=== PATIENT | female | born 1950 | race Caucasian/White ===

== ENCOUNTER → 2016-11-23 | Outpatient (REF) | payer MEDICARE, MEDICAID | LOC: M SFHCLERA 09:47 | PROVIDERS: ATTEND Physician Assistant | DX: J02.9 Acute pharyngitis, unspecified (principal) ==

== ENCOUNTER → 2017-03-07 | Outpatient (CLI) | payer MEDICARE, MEDICAID ==
[2017-03-07 11:51] LABS: MEAN CORPUSCULAR HEMOGLOBIN 28.8 pg (27.0-33.0); MEAN CORPUSCULAR HGB CONC 31.9 g/dl (32.0-36.5); MEAN CORPUSCULAR VOLUME 90.3 fl (80.0-96.0); RED CELL DISTRIBUTION WIDTH 13.1 % (11.5-14.5); WHITE BLOOD COUNT 6.1 K/mm3 (4.0-10.0)
[2017-03-07 12:13] LABS: ALBUMIN 3.3 GM/DL (3.2-5.2); ALBUMIN/GLOBULIN RATIO 0.97 (1.00-1.93); ALKALINE PHOSPHATASE 92 U/L (45-117); ALT/SGPT 19 U/L (12-78); ANION GAP 4 MEQ/L (8-16); AST/SGOT 17 U/L (15-37); BILIRUBIN,TOTAL 0.9 MG/DL (0.2-1.0); BLOOD UREA NITROGEN 8 MG/DL (7-18); CALCIUM LEVEL 8.7 MG/DL (8.8-10.2); CARBON DIOXIDE LEVEL 31 MEQ/L (21-32); CHLORIDE LEVEL 107 MEQ/L (98-107); CHOLESTEROL LEVEL 158 MG/DL (<200); CREATININE FOR GFR 0.77 MG/DL (0.55-1.02); GLOMERULAR FILTRATION RATE > 60.0 (>45); GLUCOSE, FASTING 89 MG/DL (80-110); POTASSIUM SERUM 4.7 MEQ/L (3.5-5.1); SODIUM LEVEL 142 MEQ/L (136-145); TOTAL PROTEIN 6.7 GM/DL (6.4-8.2); TRIGLYCERIDES LEVEL 56 MG/DL (<150)
== END ==
LOC: M LRY 08:02
PROVIDERS: ATTEND Nurse Practitioner Family
DX: E78.5 Hyperlipidemia, unspecified (principal); E03.9 Hypothyroidism, unspecified; Z13.0 Encounter for screening for diseases of the blood and blood-forming organs and certain disorders involving the immune mechanism

== ENCOUNTER → 2017-03-13 | Outpatient (CLI) | payer MEDICARE, MEDICAID ==
--- NOTE | 2017-03-13 11:00 | REP ---
Clinical: Chest pain. Technique: PA and lateral. Comparison: None. Findings: Mediastinum and cardiac silhouette are within normal limits. Lung nino demonstrate chronic-appearing changes without acute consolidation, effusion, or pneumothorax. Skeletal structures demonstrate age-related osteopenia and degenerative change. Impression: No acute cardiopulmonary process appreciated. If the patient remains symptomatic consider chest CT for further investigation. Signed by Jose Ramon Coffman MD 03/13/2017 10:53 A
--- NOTE | 2017-03-13 14:04 | ECGEPIP ---
Stationary ECG Study [facility] Test Date: 2017-03-13 Pat Name: REY DEAN Department: Room: - Gender: F Emergency Telecommunications Dispatcher: RADHA : 1950 Requested By: Elena BOUDREAUX Order Number: [id number] Reading MD: Ileana Ontiveros Measurements Intervals [place] Rate: 75 P: 71 NM: 155 QRS: 62 QRSD: 92 T: 61 QT: 364 QTc: 406 Interpretive Statements SINUS RHYTHM NSSTTWABN NO PRIOR Electronically Signed On 03-13-2017 14:04:29 EDT by Ileana Ontiveros
== END ==
LOC: M LAB 10:07
PROVIDERS: ATTEND Nurse Practitioner Family
DX: R07.9 Chest pain, unspecified (principal); R06.02 Shortness of breath; R00.2 Palpitations

== ENCOUNTER → 2018-03-07 | Outpatient (REF) | payer MEDICARE, MEDICAID ==
[2018-03-07 12:44] LABS: ALBUMIN 3.7 GM/DL (3.2-5.2); ALBUMIN/GLOBULIN RATIO 0.97 (1.00-1.93); ALKALINE PHOSPHATASE 89 U/L (45-117); ALT/SGPT 18 U/L (12-78); ANION GAP 6 MEQ/L (8-16); AST/SGOT 19 U/L (7-37); BLOOD UREA NITROGEN 11 MG/DL (7-18); CARBON DIOXIDE LEVEL 28 MEQ/L (21-32); CHLORIDE LEVEL 108 MEQ/L (98-107); CHOLESTEROL LEVEL 167 MG/DL (<200); CHOLESTEROL RISK RATIO 2.168 (<5); CREATININE FOR GFR 0.82 MG/DL (0.55-1.30); GLOMERULAR FILTRATION RATE > 60.0 (>45); GLUCOSE, FASTING 97 MG/DL (70-100); HDL CHOLESTEROL 77 MG/DL (>40); LDL CHOLESTEROL 80.6 MG/DL (<100); NON-HDL-C 90 MG/DL; POTASSIUM SERUM 4.4 MEQ/L (3.5-5.1); SODIUM LEVEL 142 MEQ/L (136-145); TOTAL PROTEIN 7.5 GM/DL (6.4-8.2); TRIGLYCERIDES LEVEL 47 MG/DL (<150)
== END ==
LOC: M LAB REF 11:48
DX: E78.5 Hyperlipidemia, unspecified (principal); E03.9 Hypothyroidism, unspecified; I10 Essential (primary) hypertension
CPT/HCPCS: 84443

== ENCOUNTER → 2018-09-21 | Outpatient (CLI) | payer MEDICARE, MEDICAID ==
[2018-09-21 19:33] LABS: ALBUMIN 3.4 GM/DL (3.2-5.2); ALBUMIN/GLOBULIN RATIO 0.94 (1.00-1.93); ALKALINE PHOSPHATASE 88 U/L (45-117); ALT/SGPT 18 U/L (12-78); ANION GAP 5 MEQ/L (8-16); AST/SGOT 17 U/L (7-37); BILIRUBIN,TOTAL 0.7 MG/DL (0.2-1.0); BLOOD UREA NITROGEN 9 MG/DL (7-18); CALCIUM LEVEL 8.8 MG/DL (8.8-10.2); CARBON DIOXIDE LEVEL 30 MEQ/L (21-32); CHLORIDE LEVEL 106 MEQ/L (98-107); CHOLESTEROL LEVEL 237 MG/DL (<200); CHOLESTEROL RISK RATIO 3.703 (<5); CREATININE FOR GFR 0.83 MG/DL (0.55-1.30); GLOMERULAR FILTRATION RATE > 60.0 (>45); GLUCOSE, FASTING 86 MG/DL (70-100); HDL CHOLESTEROL 64 MG/DL (>40); LDL CHOLESTEROL 160 MG/DL (<100); NON-HDL-C 173 MG/DL; POTASSIUM SERUM 4.7 MEQ/L (3.5-5.1); SODIUM LEVEL 141 MEQ/L (136-145); TRIGLYCERIDES LEVEL 67 MG/DL (<150)
== END ==
LOC: M LRY 09:15
DX: I10 Essential (primary) hypertension (principal); E78.5 Hyperlipidemia, unspecified; E03.9 Hypothyroidism, unspecified
CPT/HCPCS: 84443

== ENCOUNTER → 2018-12-17 | Outpatient (CLI) | payer MEDICARE, MEDICAID ==
[2018-12-17 18:21] LABS: BLOOD UREA NITROGEN 9 MG/DL (7-18); CARBON DIOXIDE LEVEL 29 MEQ/L (21-32); CHLORIDE LEVEL 106 MEQ/L (98-107); CREATININE FOR GFR 0.86 MG/DL (0.55-1.30); GLOMERULAR FILTRATION RATE > 60.0 (>45); GLUCOSE, FASTING 103 MG/DL (70-100); POTASSIUM SERUM 4.3 MEQ/L (3.5-5.1); SODIUM LEVEL 141 MEQ/L (136-145)
[2018-12-17 18:45] LABS: BASO # 0.1 10^3/uL (0.0-0.2); BASO % 0.9 % (0.0-1.0); EOS # 0.1 10^3/uL (0.0-0.50); EOS % 1.2 % (0.0-3.0); HEMOGLOBIN 12.7 g/dl (12.0-15.5); LYMPH # 2.6 10^3/uL (1.5-4.5); LYMPH % 33.1 % (24.0-44.0); MEAN CORPUSCULAR HEMOGLOBIN 28.3 pg (27.0-33.0); MEAN CORPUSCULAR HGB CONC 31.8 g/dl (32.0-36.5); MEAN CORPUSCULAR VOLUME 89.3 fl (80.0-96.0); MONO # 0.6 10^3/uL (0.0-0.8); MONO % 8.3 % (0.0-5.0); NEUTROPHILS # 4.3 10^3/uL (1.8-7.7); NEUTROPHILS % 56.2 % (36.0-66.0); PLATELET COUNT, AUTOMATED 326 10^3/uL (150-450); RED BLOOD COUNT 4.48 10^6/uL (4.00-5.40); WHITE BLOOD COUNT 7.7 10^3/uL (4.0-10.0)
== END ==
LOC: M LRY 09:46
PROVIDERS: ATTEND Obstetrics & Gynecology
DX: C52 Malignant neoplasm of vagina (principal); N95.0 Postmenopausal bleeding

== ENCOUNTER → 2019-01-07 | Outpatient (CLI) | payer MEDICARE, MEDICAID ==
[~2019-01-07] MED LIST: ATOR1TAB19 PO; LEVO50TA5 PO; TUMS500C PO
--- NOTE | 2019-01-13 11:19 | RADONC ---
RADIATION ONCOLOGY CONSULTATION NOTE DATE: 01/07/2019 CHART NUMBER: [id number] DIAGNOSIS: Vaginal carcinoma. STAGE: IIB, [id number]. ECOG PERFORMANCE STATUS: 0. CONSULTATION NOTE: Ms. 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 HISTORY OF PRESENT ILLNESS: The patient was in the usual state of health until around August 2018 when she began developing some postmenopausal bleeding. She was thought to have fibroids and underwent an endometrial biopsy which was nondiagnostic. There was noted, however to be a left vaginal wall ulcerative lesion and a biopsy was done on 11/20/2018 which revealed a moderately differentiated invasive squamous cell carcinoma. The patient was seen by the radiation oncologists and FREIGHT ELEVATOR ERECTOR oncologists at [facility] and is now being referred to us for discussion of the brachytherapy portion of her treatment as well as the systemic chemotherapy is now presenting to me for discussion of the external beam portion of her treatments as well. PAST MEDICAL HISTORY: The patient's past medical history is positive for hypertension, hypothyroidism and hyperlipidemia. She also has a history of varicose veins. ALLERGIES: The patient is allergic to CLARITHROMYCIN as well as SULFA DRUGS. SOCIAL HISTORY: The patient had smoked two packs of cigarettes per day for 29 years. She quit 1994. She drinks alcohol socially. FAMILY HISTORY: The patient's family history is positive for a mother with Hodgkin's disease and a half brother with melanoma. She has a half-sister with uterine carcinoma. REVIEW OF SYSTEMS: The patient's review of systems is positive for anorexia and some rectal incontinence. She also has occasional postmenopausal vaginal bleeding as discussed above. PHYSICAL EXAMINATION: The patient is a well-developed, well-nourished, female in no acute distress. HEENT exam is normocephalic, atraumatic. Extraocular movements are intact. There is no palpable cervical, supraclavicular, infraclavicular, axillary, or inguinal lymphadenopathy present. Lungs are clear to auscultation and percussion. Heart has a regular rate and rhythm. Abdomen is benign with no hepatosplenomegaly, masses, or tenderness. Skeletal examination reveals no tenderness to pressure or percussion of the bony skeleton. Extremities reveal no clubbing, cyanosis, or edema. Neurologic exam is grossly intact, as is the remainder of the physical examination. FREIGHT ELEVATOR ERECTOR examination was deferred at this time. The patient reports that she has had multiple FREIGHT ELEVATOR ERECTOR examinations and I will defer to the FREIGHT ELEVATOR ERECTOR examination done at [facility] which is well described. ASSESSMENT: I have had a lengthy discussion with this patient with regards to external beam radiation therapy. I do believe she is a candidate for such treatment and I have so informed her. I have discussed with the patient in detail the potential benefits as well as possible acute and chronic sequelae of external beam radiation therapy. We discussed logistics of treatment planning, simulation and subsequent fractionated daily radiation treatments. At the request of her radiation oncologist in [facility] I am setting her up with our medical oncologist here so that the care could be coordinated locally providing better convenience for the patient. We are planning on treating the patient to her primary site and lymph node drainage sites with concomitant chemotherapy. She will then be referred back to her physicians at [facility] for placement of her brachytherapy. I did explain to the patient that this is a curable disease and overall her best chances for local control would be a combination of external beam radiation therapy as well as brachytherapy as well as brachytherapy. Thank you for allowing us to participate in the care of this very pleasant woman. I look forward to working with you closely in her care. If I could be of any further assistance or provide you with any information, please feel free to contact me anytime. cc: MD Wale Zavala MD Seung Hahn, MD Sara McGee, MD
== END ==
LOC: M ONCR 13:48
PROVIDERS: ATTEND Radiology Radiation Oncology
DX: C52 Malignant neoplasm of vagina (principal)

== ENCOUNTER → 2019-01-15 | Outpatient (CLI) | payer MEDICARE, MEDICAID ==
[~2019-01-15] MED LIST changes: +COLA100C5 PO; +DEXA4TA PO; +LASI20TA3 PO; +LIDOCAINE 2% MDV 20 ML VIAL As Ordered ONE; +MIDAZOLAM INJ 2 MG/2 ML VIAL (J2250) As Ordered ONE; +OLAN10TA2 PO; +ONDA8TAB7 PO; +PROC10TA4 PO; +ZANTTAB PO; +ceFAZolin 1GM INJ (J0690 PER 500MG) As Ordered ONE; +fentaNYL 100 MCG/2 ML INJECTION (J3010) As Ordered ONE
--- NOTE | 2019-01-29 09:42 | REPIR ---
DATE OF PROCEDURE: 01/15/2019 ATTENDING SURGEON: Smiley Dupont MD ASSISTANTS: Gabby Gaviria and Anamika Muñoz PREOPERATIVE DIAGNOSES: Vaginal cancer, tobacco use. POSTOPERATIVE DIAGNOSES: Vaginal cancer, tobacco use. PROCEDURE: Ultrasound-guided right internal jugular vein cannulation, fluoroscopic-guided right internal jugular vein tunneled central venous catheter with subcutaneous port using a PowerPort with 90-[id number]-lyikta catheter. INDICATION: The patient is a 68-year-old female with squamous cell carcinoma of the vagina who requires access for chemotherapy. The patient will undergo placement of a tunneled central venous catheter with subcutaneous port. Risks, benefits, and alternative treatment options were discussed with the patient. ANESTHESIA: Local with 20 mL of 2% lidocaine. FLUORO TIME: 0.2 minutes. CONTRAST: None. PREOPERATIVE ANTIBIOTICS: Ancef 2 grams COMPLICATIONS: None. DRAINS: None. SPECIMENS: None. IMPLANT: Right internal jugular vein tunneled central venous catheter with subcutaneous port using a Bard PowerPort and 33-[id number]-[id number] catheter. DESCRIPTION OF PROCEDURE: The patient was taken to the angiography suite, placed supine on the angiography room table, and then prepped and draped in a standard surgical fashion. The right internal jugular vein was evaluated with ultrasound, noted to be widely patent, easily compressible, and free of thrombus. Ultrasound was used to guide cannulation of the right internal jugular vein with real-time concurrent visualization of the entry of the needle into the right internal jugular vein with a hard copy image preserved. The pocket was created in the right chest, the catheter was tunneled from the pocket to the right internal jugular vein entry site, and advanced through the introducer sheath which was placed under fluoroscopic guidance. The catheter was positioned under fluoroscopic guidance with the tip in the superior vena cava right atrial junction. The catheter was connected to the port, and then the port was placed in the pocket. The catheter and port were accessed and noted to aspirate easily and then flushed with heparinized saline. The incisions were then closed using 0 Monocryl in inverted interrupted fashion. Final fluoroscopic image showed the catheter and port to be in good position and good alignment with no pneumo- or hemothorax noted. Edited 01/29/2019 aml
== END | disposition home or self-care (01) ==
LOC: M IRPRO 07:54
PROVIDERS: ATTEND Internal Medicine Medical Oncology
DX: C52 Malignant neoplasm of vagina (principal); Z72.0 Tobacco use
CPT/HCPCS: 36561; 76937; 77001; C1788; C1894; J0690

== ENCOUNTER → 2019-01-24 | Outpatient (CLI) | payer MEDICARE, MEDICAID ==
[~2019-01-24] MED LIST changes: -COLA100C5 PO; -LIDOCAINE 2% MDV 20 ML VIAL As Ordered ONE; -MIDAZOLAM INJ 2 MG/2 ML VIAL (J2250) As Ordered ONE; -ZANTTAB PO; -ceFAZolin 1GM INJ (J0690 PER 500MG) As Ordered ONE; -fentaNYL 100 MCG/2 ML INJECTION (J3010) As Ordered ONE
--- NOTE | 2019-01-24 12:22 | REP ---
DUPLEX EXTREMITY VENOUS ULTRASOUND: Bilateral lower extremity. HISTORY: Bilateral lower extremity swelling. Rule out DVT. FINDINGS: The deep veins are anechoic and fully compressible from the groin to the popliteal fossa in the left and right lower extremity. Color flow imaging is homogeneous. Spectral Doppler interrogation demonstrates intact respiratory variation in flow and normal manual augmentation of flow. There is no evidence of deep vein thrombosis. There is a 2.4 x 0.4 x 1.7 cm left popliteal fossa fluid collection consistent with a Kathleen's cyst. IMPRESSION: Small left-sided Kathleen's cyst, otherwise negative bilateral lower extremity duplex venous ultrasound. No evidence of deep vein thrombosis. Electronically Signed by Earnest Velasquez MD 01/24/2019 02:37 P
== END ==
LOC: M RAD 11:16
PROVIDERS: ATTEND Nurse Practitioner Family
DX: M71.22 Synovial cyst of popliteal space [Baker], left knee (principal); M79.89 Other specified soft tissue disorders

== ENCOUNTER → 2019-02-25 | Outpatient (RCR) | payer MEDICARE, MEDICAID ==
--- NOTE | 2019-01-28 14:49 | RADONC ---
RADIATION ONCOLOGY PROGRESS NOTE DATE: 01/27/2019 CHART NUMBER: [id number] Ms. Acuña is presently at a dose of 720 cGy to her pelvis and is tolerating treatments quite well at this point with no complaints related to her radiation therapy. She is having no new urinary or bowel difficulties and no bone pain. The patient's review of systems is positive for some urinary discomfort which is unchanged. It is otherwise noncontributory. She denies nausea, vomiting, fevers, chills, night sweats, diplopia, headaches, anxiety or depression, anorexia, weight loss, visual disturbances, chest pain, urinary or bowel difficulties, bone pain, or neurological problems. On physical exam the patient's skin is in good condition with no evidence of moist or dry desquamation. The remainder of her physical exam remains unchanged. Ms. Acuña is tolerating treatments quite well and radiation will continue as scheduled.
--- NOTE | 2019-02-03 09:32 | RADONC ---
RADIATION ONCOLOGY PROGRESS NOTE DATE OF SERVICE: 02/03/2019 CHART #: [id number] Ms. Acuña is presently at a dose of 1440 cGy to her vagina and is tolerating her treatments fairly well with no significant difficulties related to her radiation therapy. She does complain at this time of hemorrhoids and this is being helped somewhat with sitz baths. She does have some loose bowel movements. REVIEW OF SYSTEMS: The patient's review of systems is noncontributory. Denies nausea, vomiting, fevers, chills, night sweats, diplopia, headaches, anxiety or depression, anorexia, weight loss, visual disturbances, chest pain, urinary or bowel difficulties, bone pain, or neurological problems. PHYSICAL EXAMINATION: The patient's skin is in good condition with no evidence of moist or dry desquamation. The remainder of her physical exam remains unchanged. Ms. Acuña is tolerating treatments quite well and radiation will continue as scheduled.
--- NOTE | 2019-02-10 10:02 | RADONC ---
RADIATION ONCOLOGY PROGRESS NOTE DATE: 02/10/2019 CHART NUMBER: [id number] Mrs. Acuña with a diagnosis of vaginal carcinoma is currently undergoing local regional radiotherapy with concomitant cisplatin based chemotherapy. She is currently at a dose of 2340 cGy of an anticipated 4500 cGy. A brachytherapy boost will be scheduled thereafter. Thus far she is tolerating her radiotherapy well with no significant untoward side effects. REVIEW OF SYSTEMS: She specifically denies any nausea, vomiting (with the exception of when she gets her chemotherapy). Her energy level is adequate and generally she is tolerating her multimodality therapy reasonably well. She also denies any anorexia, weight loss, depression, visual disturbances, chest pain or urinary issues. She does complain of some bowel sensitivity with some loosening of the stool and mucus production. She does have Imodium should she undergo diarrhea. EXAMINATION FINDINGS: The skin within the irradiated volume shows no evidence of erythema and certainly no physical desquamation. There is no palpable peripheral lymphadenopathy. The remainder of the physical examination is unchanged. IMPRESSION: Tolerating therapy well. PLAN: Treatments to continue as outlined. MTDD
--- NOTE | 2019-02-19 10:47 | RADONC ---
RADIATION ONCOLOGY PROGRESS NOTE DATE: 02/18/2019 CHART #: [id number] Ms. Acuña is presently at a dose of 3420 cGy to her pelvis and is tolerating treatments quite well at this point with no complaints related to her radiation therapy. She is having no urinary or bowel difficulties and no bone pain. REVIEW OF SYSTEMS: The patient's review of systems is noncontributory. Denies nausea, vomiting, fevers, chills, night sweats, diplopia, headaches, anxiety or depression, anorexia, weight loss, visual disturbances, chest pain, urinary or bowel difficulties, bone pain, or neurological problems. PHYSICAL EXAMINATION: The patient's skin is in good condition with no evidence of moist or dry desquamation. The remainder of her physical exam remains unchanged. Ms. Acuña is tolerating treatments quite well and radiation will continue as scheduled.
[~2019-02-25] MED LIST changes: +COLA100C5 PO; +ZANTTAB PO
--- NOTE | 2019-02-26 07:45 | RADONC ---
RADIATION ONCOLOGY PROGRESS NOTE: DATE: 02/24/2019 CHART NUMBER: [id number] Ms. Acuña is presently at a dose of 4140 cGy to her pelvis and is tolerating treatments quite well at this point with some discomfort upon urination and generally skin is burning. REVIEW OF SYSTEMS: The patient's review of systems is otherwise noncontributory. She denies nausea, vomiting, fevers, chills, night sweats, diplopia, headaches, anxiety or depression, anorexia, weight loss, visual disturbances, chest pain, urinary or bowel difficulties, bone pain, or neurological problems. PHYSICAL EXAMINATION: The patient's skin shows erythema and tanning present but overall is in generally good condition with no evidence of moist or dry desquamation. The remainder of her physical exam is largely unchanged. Ms. Acuña is scheduled for completion in 2 days. She has been in contact with both Dr. Skinner as well as Dr. Farias in [place] and they are ranging the brachytherapy portion of her treatment. In the meantime, radiation will continue as scheduled.
== END ==
LOC: M ONCR 01-27 08:43
PROVIDERS: ATTEND Radiology Radiation Oncology
DX: C52 Malignant neoplasm of vagina (principal)

== ENCOUNTER 2019-02-26 08:42 | Outpatient (RCR) | payer MEDICARE, MEDICAID ==
--- NOTE | 2019-02-27 09:48 | RADONC ---
RADIATION ONCOLOGY TREATMENT SUMMARY: DATE: 02/26/2019 CHART NUMBER: [id number] DIAGNOSIS: Vaginal carcinoma. STAGE: II B, cT2b, N0,M0 ECOG PERFORMANCE STATUS: 0 Ms. 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 We treated the patient to her pelvis for a total dose of 4500 cGy delivered and 25 fractions of 180 cGy each over 35 elapsed days from 01/22/2019 through 02/26/2019. The patient's pelvis was treated on a linear accelerator utilizing a 15 MV photon beam via 3D conformal technique with anterior posterior left and right lateral nino. Ms. Acuña tolerated her treatments quite well and was able to complete therapy as prescribed without interruption. The patient is scheduled to be seen next week by Dr. Farias at [facility]. She is also scheduled for an MRI for treatment planning purposes for the brachytherapy portion of her treatment. I have scheduled the patient see me again in 1 month for further followup and evaluation as well. Thank you once again for allowing us to participate in the care of this very pleasant woman. If I could be of any further assistance, please feel free to contact me anytime. As always warm regards, cc: MD Wale Zavala MD Seung Hahn, MD Sara McGee, MD
[2019-03-17] MEDS ORDERED: OLAN10TA2 PO (09:06)
== END 2019-03-28 ==
LOC: M ONCR 08:42
PROVIDERS: ATTEND Radiology Radiation Oncology
DX: C52 Malignant neoplasm of vagina (principal)

== ENCOUNTER → 2019-03-13 | Outpatient (CLI) | payer MEDICARE, MEDICAID ==
[2019-03-13 17:02] LABS: BASO % 0.7 % (0.0-1.0); EOS % 1.1 % (0.0-3.0); HEMATOCRIT 26.2 % (36.0-47.0); HEMOGLOBIN 8.6 g/dl (12.0-15.5); LYMPH # 0.6 10^3/uL (1.5-4.5); LYMPH % 21.3 % (24.0-44.0); MEAN CORPUSCULAR HEMOGLOBIN 29.1 pg (27.0-33.0); MEAN CORPUSCULAR HGB CONC 32.8 g/dl (32.0-36.5); MEAN CORPUSCULAR VOLUME 88.5 fl (80.0-96.0); MONO # 0.5 10^3/uL (0.0-0.8); MONO % 16.3 % (0.0-5.0); NEUTROPHILS # 1.7 10^3/uL (1.8-7.7); NEUTROPHILS % 59.9 % (36.0-66.0); PLATELET COUNT, AUTOMATED 282 10^3/uL (150-450); RED BLOOD COUNT 2.96 10^6/uL (4.00-5.40); WHITE BLOOD COUNT 2.8 10^3/uL (4.0-10.0)
[2019-03-13 17:14] LABS: ALBUMIN 3.2 GM/DL (3.2-5.2); ALT/SGPT 14 U/L (12-78); BILIRUBIN,TOTAL 0.3 MG/DL (0.2-1.0); BLOOD UREA NITROGEN 11 MG/DL (7-18); CALCIUM LEVEL 8.6 MG/DL (8.8-10.2); CARBON DIOXIDE LEVEL 27 MEQ/L (21-32); CHLORIDE LEVEL 107 MEQ/L (98-107); CHOLESTEROL LEVEL 178 MG/DL (<200); CHOLESTEROL RISK RATIO 2.825 (<5); CREATININE FOR GFR 0.81 MG/DL (0.55-1.30); GLOMERULAR FILTRATION RATE > 60.0 (>45); GLUCOSE, FASTING 97 MG/DL (70-100); HDL CHOLESTEROL 63 MG/DL (>40); LDL CHOLESTEROL 101 MG/DL (<100); NON-HDL-C 115 MG/DL; POTASSIUM SERUM 3.3 MEQ/L (3.5-5.1); SODIUM LEVEL 142 MEQ/L (136-145); TOTAL PROTEIN 5.9 GM/DL (6.4-8.2); TRIGLYCERIDES LEVEL 68 MG/DL (<150)
== END ==
LOC: M LRY 10:49
PROVIDERS: ATTEND Nurse Practitioner Family
DX: Z13.9 Encounter for screening, unspecified (principal)

== ENCOUNTER → 2019-04-11 | Outpatient (CLI) | payer MEDICARE, MEDICAID ==
[2019-04-11 11:48] LABS: ALBUMIN 3.2 GM/DL (3.2-5.2); ALT/SGPT 24 U/L (12-78); BILIRUBIN,TOTAL 0.9 MG/DL (0.2-1.0); BLOOD UREA NITROGEN 10 MG/DL (7-18); CALCIUM LEVEL 8.6 MG/DL (8.8-10.2); CARBON DIOXIDE LEVEL 27 MEQ/L (21-32); CHLORIDE LEVEL 110 MEQ/L (98-107); GLOMERULAR FILTRATION RATE > 60.0 (>45); GLUCOSE, FASTING 110 MG/DL (70-100); POTASSIUM SERUM 3.7 MEQ/L (3.5-5.1); SODIUM LEVEL 143 MEQ/L (136-145); TOTAL PROTEIN 6.7 GM/DL (6.4-8.2)
== END ==
LOC: M LRY 09:40
PROVIDERS: ATTEND Nurse Practitioner Family
DX: E87.6 Hypokalemia (principal); R60.1 Generalized edema

== ENCOUNTER → 2019-07-02 | Outpatient (CLI) | payer MEDICARE, MEDICAID ==
[~2019-07-02] MED LIST changes: +ZANT150T40 PO; -ZANTTAB PO
--- NOTE | 2019-07-03 08:19 | RADONC ---
RADIATION ONCOLOGY FOLLOWUP NOTE DATE: 07/02/2019 CHART NUMBER: [id number] DIAGNOSIS: Vaginal carcinoma. STAGE: II B, clinical [id number]. ECOG PERFORMANCE STATUS: 0 FOLLOWUP NOTE: Mrs. Acuña is a very pleasant, 69-year-old lady with a diagnosis of a stage II B, clinical [id number], moderately differentiated invasive squamous cell carcinoma of the left vaginal wall. She presents today for a followup visit after having completed a course of definitive local regional radiotherapy in February of 2019. She also underwent an implant by Dr. Farias utilizing brachytherapy after completing external beam radiotherapy in this department. She is being followed by Dr. Farias and Dr. Skinner. REVIEW OF SYSTEMS: The patient is actually doing quite well with the exception of some mucus discharge from the rectum associated with a throbbing discomfort. The discomfort is actually better today and started approximately a week and half ago. She denies any nausea, vomiting, fevers, chills, night sweats, diarrhea, dysuria, hematuria or blood per rectum. She also denies any urinary issues. The remainder of the review of systems is unchanged. PHYSICAL EXAMINATION: She is a well-nourished, well-developed female in no acute distress. HEENT: Normocephalic. EOMs intact. PERRLA. Fundi benign. Lymphatics: No palpable peripheral lymphadenopathy is appreciated. Lungs are clear. Heart: Regular. Abdomen: Without evidence of hepatomegaly, masses, deep abdominal tenderness. Extremities: Without cyanosis, clubbing or edema. Neurologic: Examination grossly physiologic. A vaginal examination was postponed today at the patient's request because she has seen Dr. Skinner and Dr. Farias, both of them perform pelvic examinations. IMPRESSION: The patient is doing well and is clinically THERESA at this time. PLAN: We will see the patient on a p.r.n. basis and she will continue to follow with Dr. Skinner for full TROLLEY COLLECTOR examination as well as Dr. Farias for a post brachytherapy evaluation. She had some question as to when she could have her port removed and I asked her to ask Dr. Amita Antonio regarding that issue. Thank you for allowing us the opportunity of participation in the management of this very fine lady. cc: MD Wale Zavala MD Seung Hahn, MD [place], MD
== END ==
LOC: M ONCR 09:04
PROVIDERS: ATTEND Radiology Radiation Oncology
DX: Z85.44 Personal history of malignant neoplasm of other female genital organs (principal)

== ENCOUNTER → 2019-07-11 | Outpatient (CLI) | payer MEDICARE, MEDICAID ==
[2019-07-11 12:02] LABS: BASO % 0.9 % (0.0-1.0); EOS # 0.1 10^3/uL (0.0-0.5); EOS % 1.8 % (0.0-3.0); HEMATOCRIT 32.3 % (36.0-47.0); HEMOGLOBIN 10.3 g/dl (12.0-15.5); LYMPH # 1.2 10^3/uL (1.5-5.0); LYMPH % 27.7 % (24.0-44.0); MEAN CORPUSCULAR HEMOGLOBIN 29.1 pg (27.0-33.0); MEAN CORPUSCULAR HGB CONC 31.9 g/dl (32.0-36.5); MEAN CORPUSCULAR VOLUME 91.2 fl (80.0-96.0); MONO # 0.5 10^3/uL (0.0-0.8); MONO % 11.1 % (0.0-5.0); NEUTROPHILS # 2.6 10^3/uL (1.5-8.5); NEUTROPHILS % 58.3 % (36.0-66.0); PLATELET COUNT, AUTOMATED 242 10^3/uL (150-450); RED BLOOD COUNT 3.54 10^6/uL (4.00-5.40); WHITE BLOOD COUNT 4.4 10^3/uL (4.0-10.0)
[2019-07-11 12:11] LABS: ALBUMIN 3.3 GM/DL (3.2-5.2); BILIRUBIN,TOTAL 0.4 MG/DL (0.2-1.0); CALCIUM LEVEL 9.1 MG/DL (8.8-10.2); CHOLESTEROL RISK RATIO 2.761 (<5); CREATININE FOR GFR 1.65 MG/DL (0.55-1.30); GLOMERULAR FILTRATION RATE 32.9 (>45); POTASSIUM SERUM 4.2 MEQ/L (3.5-5.1); THYROID STIMULATING HORMONE 1.5 uIU/ML (0.358-3.740); TOTAL PROTEIN 6.3 GM/DL (6.4-8.2)
== END ==
LOC: M LRY 09:01
PROVIDERS: ATTEND Nurse Practitioner Family
DX: E87.6 Hypokalemia (principal); E78.5 Hyperlipidemia, unspecified; I10 Essential (primary) hypertension

== ENCOUNTER 2019-08-04 17:33 | Emergency (ER) | payer MEDICARE, MEDICAID ==
[~2019-08-04] VITALS: Ht 157.5 cm; Wt 55.4 kg
[2019-08-04 19:05] LABS: BASO # 0.1 10^3/uL (0.0-0.2); BASO % 1.1 % (0.0-1.0); EOS # 0.1 10^3/uL (0.0-0.5); EOS % 1.5 % (0.0-3.0); HEMATOCRIT 32.8 % (36.0-47.0); HEMOGLOBIN 10.4 g/dl (12.0-15.5); LYMPH # 1.4 10^3/uL (1.5-5.0); LYMPH % 26.2 % (24.0-44.0); MEAN CORPUSCULAR HEMOGLOBIN 28.1 pg (27.0-33.0); MEAN CORPUSCULAR HGB CONC 31.7 g/dl (32.0-36.5); MEAN CORPUSCULAR VOLUME 88.6 fl (80.0-96.0); MONO # 0.6 10^3/uL (0.0-0.8); MONO % 10.5 % (0.0-5.0); NEUTROPHILS # 3.2 10^3/uL (1.5-8.5); NEUTROPHILS % 60.5 % (36.0-66.0); PLATELET COUNT, AUTOMATED 322 10^3/uL (150-450); WHITE BLOOD COUNT 5.2 10^3/uL (4.0-10.0)
[2019-08-04] MEDS ORDERED: NS 1,000 ML IV ONE (19:15)
[2019-08-04 19:31] LABS: ALBUMIN 3.8 GM/DL (3.2-5.2); BILIRUBIN,DIRECT 0.1 MG/DL (0.0-0.2); BILIRUBIN,TOTAL 0.4 MG/DL (0.2-1.0); CALCIUM LEVEL 9.5 MG/DL (8.8-10.2); CREATININE FOR GFR 1.27 MG/DL (0.55-1.30); GLOMERULAR FILTRATION RATE 44.5 (>45); POTASSIUM SERUM 4.3 MEQ/L (3.5-5.1); TOTAL PROTEIN 7.4 GM/DL (6.4-8.2)
[2019-08-04] MEDS ORDERED: ISOVUE-370 76% 100ML VIAL (Q9967) As Ordered ONE (19:33)
[2019-08-04 20:03] LABS: INR 1.15; PARTIAL THROMBOPLASTIN TIME 28.3 SECONDS (25.0-38.4); PROTHROMBIN TIME 14.4 SECONDS (11.8-14.0)
--- NOTE | 2019-08-04 20:25 | REPVR ---
PROCEDURE INFORMATION: Exam: CT Abdomen And Pelvis With Contrast Exam date and time: 08/04/2019 7:36 PM Clinical history: 69 years old, female; Abdominal pain; Localized; Lower; Additional info: Lower abd/rectal pain TECHNIQUE: Imaging protocol: Computed tomography of the abdomen and pelvis with intravenous contrast. Radiation optimization: All CT scans at this facility use at least one of these dose optimization techniques: automated exposure control; mA and/or kV adjustment per patient size (includes targeted exams where dose is matched to clinical indication); or iterative reconstruction. Contrast material: ISOVUE 370; Contrast volume: 100 ml; Contrast route: IV; COMPARISON: No relevant prior studies available. FINDINGS: Liver: Normal. No mass. Gallbladder and bile ducts: There are calculi in the gallbladder. No signs of cholecystitis. Pancreas: Normal. No ductal dilation. Spleen: Normal. No splenomegaly. Adrenals: Normal. No mass. Kidneys and ureters: There is a cyst in the right kidney. Kidneys otherwise unremarkable. No hydronephrosis or calculi. Stomach and bowel: There is mild colonic diverticulosis without evidence of diverticulitis. There is mild wall thickening and mural edema in the sigmoid colon. No focally inflamed diverticula, abscess, or bowel obstruction. The small bowel and stomach are unremarkable. Appendix: No evidence of appendicitis. Intraperitoneal space: Unremarkable. No free air. No significant fluid collection. Vasculature: Unremarkable. No abdominal aortic aneurysm. Lymph nodes: Unremarkable. No enlarged lymph nodes. Bladder: Unremarkable as visualized. Reproductive: Unremarkable as visualized. Bones/joints: There are degenerative changes in the spine and pelvis. Soft tissues: Unremarkable. IMPRESSION: 1. Mild wall thickening and edema in the sigmoid colon suggesting a mild colitis. No obstruction or abscess. 2. Cholelithiasis without signs of acute cholecystitis. 3. Colonic diverticulosis. COMMENT: Consistent with the [employer]'s Incidental Findings Committee Report (J Am Hitesh Radiol 2010): Unless the patient's specific circumstances suggest otherwise, any liver lesion 0.5 cm or less, any cystic kidney lesion less than 1.0 cm, and/or any adrenal lesion 1.0 cm or less not otherwise characterized in this report as possessing suspicious or indeterminate imaging features is/are highly likely to be benign and do not require follow-up imaging or biopsy. Electronically signed by: Janes Dial On 08/04/2019 20:25:32 PM
[2019-08-04] MEDS ORDERED: MORPHINE 4 MG/ML 1ML VIAL/SYRINGE (J2270) IV ONE (20:45)
[2019-08-04] MEDS ORDERED: NORC1TAB7 PO (21:14)
[2019-08-04] MEDS ORDERED: CIPR-249 PO (21:14)
[2019-08-04] MEDS ORDERED: FLAG500T PO (21:14)
[2019-08-04] MEDS ORDERED: NORCO 5/325MG TABLET (BULK FOR ED) PO ONE (21:30)
[2019-08-04 21:34] VITALS: BP 172/85
== END 2019-08-04 21:42 | disposition home or self-care (01) ==
LOC: M ED 17:33
DX: K52.9 Noninfective gastroenteritis and colitis, unspecified (principal); C52 Malignant neoplasm of vagina; K80.20 Calculus of gallbladder without cholecystitis without obstruction; K57.30 Diverticulosis of large intestine without perforation or abscess without bleeding; K21.9 Gastro-esophageal reflux disease without esophagitis; R39.89 Other symptoms and signs involving the genitourinary system; Z88.2 Allergy status to sulfonamides; Z88.1 Allergy status to other antibiotic agents; Z79.899 Other long term (current) drug therapy
CPT/HCPCS: 74177; 80048; 80076; 81001; 83605; 83690; 85025; 85610; 85730; 87086; 96361; 96374; 99284; J2270; Q9967

== ENCOUNTER 2019-08-18 14:40 | Emergency (ER) | payer MEDICARE, MEDICAID ==
[~2019-08-18] VITALS: Ht 160 cm; Wt 52.8 kg
[~2019-08-18 14:40] MED LIST changes: +CIPR-249 PO; +FLAG500T PO; +NORC1TAB7 PO
[2019-08-18 16:50] LABS: BASO # 0.1 10^3/uL (0.0-0.2); BASO % 0.9 % (0.0-1.0); EOS # 0.1 10^3/uL (0.0-0.5); EOS % 0.9 % (0.0-3.0); HEMATOCRIT 31.7 % (36.0-47.0); HEMOGLOBIN 10.5 g/dl (12.0-15.5); LYMPH # 1.3 10^3/uL (1.5-5.0); LYMPH % 22.5 % (24.0-44.0); MEAN CORPUSCULAR HEMOGLOBIN 29.1 pg (27.0-33.0); MEAN CORPUSCULAR HGB CONC 33.1 g/dl (32.0-36.5); MEAN CORPUSCULAR VOLUME 87.8 fl (80.0-96.0); MONO # 0.7 10^3/uL (0.0-0.8); MONO % 11.7 % (0.0-5.0); NEUTROPHILS # 3.5 10^3/uL (1.5-8.5); NEUTROPHILS % 63.6 % (36.0-66.0); PLATELET COUNT, AUTOMATED 338 10^3/uL (150-450); RED BLOOD COUNT 3.61 10^6/uL (4.00-5.40); WHITE BLOOD COUNT 5.6 10^3/uL (4.0-10.0)
[2019-08-18] MEDS: GASTROGRAFIN SOLUTION 30ML PO SCH ×2 (17:00→17:36)
[2019-08-18 17:18] LABS: ALBUMIN 3.5 GM/DL (3.2-5.2); BILIRUBIN,DIRECT 0.1 MG/DL (0.0-0.2); BILIRUBIN,TOTAL 0.5 MG/DL (0.2-1.0); TOTAL PROTEIN 6.7 GM/DL (6.4-8.2)
[2019-08-18] MEDS ORDERED: ISOVUE-370 76% 100ML VIAL (Q9967) As Ordered ONE (18:06)
[2019-08-18] MEDS ORDERED: POTASSIUM CHLORIDE 10 MEQ SR TABLET PO ONE (18:45)
[2019-08-18] MEDS ORDERED: ACETAMINOPHEN 325 MG TAB PO ONE (19:30)
--- NOTE | 2019-08-18 20:17 | REPVR ---
PROCEDURE INFORMATION: Exam: CT Abdomen And Pelvis With Contrast Exam date and time: 08/18/2019 4:19 PM Clinical history: 69 years old, female; Pain; Other: Rectal; Additional info: Rectal pain, h/o colitis, vaginal CA TECHNIQUE: Imaging protocol: Computed tomography of the abdomen and pelvis with intravenous contrast. Radiation optimization: All CT scans at this facility use at least one of these dose optimization techniques: automated exposure control; mA and/or kV adjustment per patient size (includes targeted exams where dose is matched to clinical indication); or iterative reconstruction. Contrast material: ISOVUE 370; Contrast volume: 100 ml; Contrast route: IV; COMPARISON: CT ABD/PEL W/IV CONTRAST ONLY 08/04/2019 7:34 PM FINDINGS: Liver: Unremarkable. Gallbladder and bile ducts: Cholelithiasis without evidence of cholecystitis. Pancreas: Unremarkable. No ductal dilation. Spleen: Unremarkable. Adrenals: Unremarkable. Kidneys and ureters: 3.5 cm fluid density cyst in the right kidney. No hydronephrosis or stones. Stomach and bowel: Marked wall thickening throughout the sigmoid colon. Moderate diverticulosis of the sigmoid colon. Small bowel loops are unremarkable. Appendix: No evidence of appendicitis. Intraperitoneal space: No pneumoperitoneum. No significant fluid collection. Vasculature: Atherosclerotic calcifications of the aorta and major branches. Lymph nodes: No enlarged lymph nodes. Bladder: Unremarkable. Reproductive: Unremarkable as visualized. Bones/joints: Multilevel degenerative changes of the visualized spine. No acute osseous lesion or fracture. Soft tissues: Unremarkable. IMPRESSION: 1. Marked wall thickening throughout the sigmoid colon, which in the setting of diverticulosis could reflect acute colitis versus diverticulitis. 2. Other chronic findings, as above. Electronically signed by: Eleno Fuller On 08/18/2019 20:17:38 PM
[2019-08-18] MEDS ORDERED: NORC1TAB7 PO (21:28)
[2019-08-18 21:48] VITALS: BP 167/77
== END 2019-08-18 21:50 | disposition home or self-care (01) ==
LOC: M ED 14:40
DX: K64.8 Other hemorrhoids (principal); N28.1 Cyst of kidney, acquired; E87.6 Hypokalemia; K80.20 Calculus of gallbladder without cholecystitis without obstruction; D64.9 Anemia, unspecified; I70.90 Unspecified atherosclerosis; K57.92 Diverticulitis of intestine, part unspecified, without perforation or abscess without bleeding; E78.00 Pure hypercholesterolemia, unspecified; E03.9 Hypothyroidism, unspecified; K21.9 Gastro-esophageal reflux disease without esophagitis; C52 Malignant neoplasm of vagina; Z88.1 Allergy status to other antibiotic agents; Z88.2 Allergy status to sulfonamides; Z87.891 Personal history of nicotine dependence
CPT/HCPCS: 36415; 74177; 80047; 80076; 81001; 83690; 85025; 87086; 87507; 99284; Q9963; Q9967

== ENCOUNTER → 2019-09-04 | Outpatient (REF) | payer MEDICARE, MEDICAID ==
[2019-09-05 14:14] LABS: PERCENT SATURATION 15.8 % (13.2-45.0)
[2019-09-05 14:19] LABS: FOLATE 15.6 NG/ML
[2019-09-08 15:45] LABS: Methylmalonic Acid 372 nmol/L (0-378)
== END ==
LOC: M LAB REF 13:50
PROVIDERS: ATTEND Internal Medicine Nephrology
DX: N18.9 Chronic kidney disease, unspecified (principal); D63.1 Anemia in chronic kidney disease

== ENCOUNTER → 2019-09-11 | Outpatient (CLI) | payer MEDICARE, MEDICAID ==
[~2019-09-11] MED LIST changes: +CYMB1CAP5 PO; +GABA300S PO; +MS C15TA8 PO
--- NOTE | 2019-09-11 10:03 | REP ---
Renal sonography: History: Chronic kidney disease stage III. Findings: Renal cortical echogenicity pattern is normal. There is a 2.9 x 2.8 x 3.1 cm simple cyst in the right mid kidney. No hydronephrosis is seen. No mass lesion is observed. Right renal dimensions are 9.3 x 5.2 x 3.0 cm. Left renal dimensions are 9.1 x 4.1 x 4.4 cm. Impression: There is a 3.1 cm simple cyst in the right kidney. Otherwise normal renal sonography. Electronically Signed by Earnest Velasquez MD 09/11/2019 09:55 A
--- NOTE | 2019-09-11 11:55 | REP ---
Limited pelvic, bladder sonography. History: Chronic kidney disease stage 3. Findings: Bladder kemp are very slightly trabeculated. No bladder mass lesion is observed. Pre-void bladder volume is calculated to 122 mL. Postvoid bladder volume is 14 mL, 6% postvoid residual. Emptying ureteral jets are observed bilaterally in the bladder lumen on color Doppler interrogation. Impression: Mildly trabeculated bladder kemp. Otherwise negative. Electronically Signed by Earnest Velasquez MD 09/11/2019 12:28 P
== END ==
LOC: M RAD 07:45
PROVIDERS: ATTEND Internal Medicine Nephrology
DX: N18.3 Chronic kidney disease, stage 3 (moderate) (principal); D63.1 Anemia in chronic kidney disease; C52 Malignant neoplasm of vagina

== ENCOUNTER → 2019-10-07 | Outpatient (CLI) | payer MEDICARE, MEDICAID ==
--- NOTE | 2019-10-17 02:23 | ECWPNPC ---
PATIENT NAME: REY DEAN : 1950 GENDER: FEMALE VISIT DATE: 10/07/2019 DISCHARGE DATE: 10/07/19 1330 VISIT LOCKED DATE TIME: PHYSICIAN: ISMAEL MCMAHAN RESOURCE: ISMAEL MCMAHAN REASON FOR APPOINTMENT 1. 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 2018.RATING PAIN VAS 8-10/10.HAS UNDERGONE CHEMO AND RADIATION OVER THE PAST YEAR WITH LAST TREATMENT OF RADIATION IN FEBRUARY.CURRENTLY USING GABAPENTIN 300MG TID THAT WAS HELPFUL INITIALLY BUT HAS SLOWLY BECOME LESS EFFECTIVE.HAD TO GO TO ER IN [place] DUE TO UNCONTROLLED PAIN.CURRENTLY TAKING ACETAMINOPHEN 1000MG QID AND FINDS IT SOMEWHAT HELPFUL BUT WEARS OFF AFTER APPROXIMATLEY 4 HOURS.RECENTLY DIAGNOSED WITH METASTISIS PER MRI WITH AND WITHOUT CONTRAST OF PELVIS.STATES SHE WILL PROBABALY HAVE SURGERY SCHEDULED IN NEAR FUTURE IE COLOSTOMY PER PATIENT.SHE HAS STAGE 2 RENAL IMPAIRMENT.RATING PAIN VAS 10/10.PAIN IS AGGREVATD BY PROLONGED SITTING OR BOWEL MOVEMENTS.REPORTS MUCOUSY/GELATINOUS BM'S THAT ARE EITHER CONSTIPATED OR DIARHEA LIKE.HAS LOST 30 # OVER THE PAST 6 MONTHS. WHEN DID YOUR PAIN FIRST START? . BRIEFLY DESCRIBE HOW YOUR PAIN STARTED? . HOW DOES YOUR PAIN CHANGE WITH TIME? . DOES YOUR PAIN AWAKEN YOU FROM SLEEP? . HOW MANY HOURS OF SLEEP DO YOU NORMALLY GET? . ANY DIAGNOSTIC TESTING? . FACILITY WHERE TESTS WERE DONE? ____. PAIN TREATMENT TREATMENT YES CANCER HAVE YOU EVER HAD ANY TYPE OF CANCER?NO NO. PAIN SCREENING: PATIENT HAS A COMPLAINT OF ACUTE OR CHRONIC PAIN :YES FALL RISK SCREENING: SCREENING : NO FALLS IN THE PAST YEAR. ANN INVENTORY: QUESTIONNAIRE ASSESSEDTBD SCORE VALUE CALCULATED TBD CURRENT MEDICATIONS TAKING LEVOTHYROXINE SODIUM 50 MCG TABLET 1 TABLET ON AN EMPTY STOMACH IN THE MORNING ORALLY ONCE A DAY TAKING LIPITOR 10 MG TABLET 1 TABLET ORALLY ONCE A DAY TAKING GABAPENTIN 300 MG CAPSULE 1 CAPSULE ORALLY THREE TIMES DAILY TAKING PREDNISONE 5 MG TABLET 1 TABLET ORALLY ONCE A DAY TAKING TYLENOL 325 MG TABLET 1 TABLET NEEDED ORALLY EVERY 4 HRS TAKING TYLENOL EXTRA STRENGTH 500 MG TABLET 2 TABLET NEEDED ORALLY EVERY 6 HRS TAKING COLACE 100 MG CAPSULE 1 CAPSULE NEEDED ORALLY ONCE A DAY TAKING TUMS 500 MG TABLET CHEWABLE 1 TABLET ORALLY ONCE A DAY TAKING CYMBALTA 30 MG CAPSULE DELAYED RELEASE PARTICLES 1 CAPSULE ORALLY ONCE A DAY DISCONTINUED AMOXICILLIN 500 MG TABLET 2 TABLETS ORALLY ONCE A DAY MEDICATION LIST REVIEWED AND RECONCILED WITH THE PATIENT PAST MEDICAL HISTORY HYPOTHYROIDISM HYPERCHOLESTEROLEMIA CANCER VAGINAL STAGE II KIDNEY FUNCTION ALLERGIES CLARITHROMYCIN: RASH - ALLERGY SULFAMETHOXAZOLE-TMP DS: HEAD ACHE, STIFF NECK - SIDE EFFECTS SURGICAL HISTORY ORAL SURGERY 02/1986 INFUSAPORT 01/15/19 LEX [facility]ACHY THERAPY 02/2019 FAMILY HISTORY MOTHER: , DIAGNOSED WITH OTHER MALIGNANT NEOPLASM OF UNSPECIFIED SITE PATERNAL AUNT: DIABETES 1 BROTHER(S) , 1 SISTER(S) . FATHER IS UNKNOWNBROTHER AT @54 YRS OLD MELENOMASISTER HAD UTURINE CANCER , HTN. SOCIAL HISTORY GENERAL: TOBACCO USE ARE YOU A:FORMER SMOKER OTHERS AT HOME: CHILDREN. HOUSING: OWNS HOME. EDUCATION LEVEL OF EDUCATION: GED DIET: REGULAR. LANGUAGE LANGUAGES SPOKEN:CAMEROONIAN RECREATIONAL DRUG USE DRUG USE?NO EXERCISE: NONE. LEARNING BARRIERS / SPECIAL NEEDS BARRIERS TO LEARNING?NO PAIN CLINIC PFS, CLERGY, PUBLIC HEALTH REFERRALS PFS REFERRAL NEEDED?NO CLERGY REFERRAL NEEDED?NO PUBLIC HEALTH REFERRAL NEEDED?NO WAS THE PROVIDER NOTIFIED OF ANY PERTINENT INFO?NO HAS THE PATIENT BEEN EDUCATED REGARDING HIS/HER PLAN OF CARE?YES HAS THE PATIENT BEEN EDUCATED REGARDING PAIN, THE RISK FOR PAIN, THE IMPORTANCE OF EFFECTIVE PAIN MANAGEMENT, AND THE PAIN ASSESSMENT PROCESS?YES LATEX QUESTIONNAIRE LATEX ALLERGY : HAVE YOU EVER DEVELOPED ANY TYPE OF REACTION AFTER HANDLING LATEX PRODUCTS SUCH RUBBER GLOVES, CONDOMS, DIAPHRAGMS, BALLOONS, SOCKS, OR UNDERWEAR?NO LATEX ALLERGY : HAVE YOU EVER DEVELOPED ANY TYPE OF REACTION DURING OR AFTER DENTAL APPOINTMENT, VAGINAL/RECTAL EXAMINATION, SURGICAL PROCEDURE, OR ANY OTHER EXPOSURE?NO LATEX RISK : HAVE YOU EVER HAD ANY DIFFICULTY BREATHING OR HIVES AFTER EATING OR HANDLING ANY FRUITS, OR VEGETABLES; SUCH KIWI, BANANAS, STONE FRUITS, OR CHESTNUTSNO LATEX RISK : DO YOU HAVE A PREVIOUS PERSONAL HISTORY OF MORE THAN NINE SURGERIES, SPINA BIFIDA, OR REPEATED CATHERIZATIONS? NO LATEX RISK : ARE YOU FREQUENTLY EXPOSED TO LATEX PRODUCTS IN YOUR OCCUPATION?NO DATE ASKED : 10/07/2019 CAFFEINE CAFFEINE USE?YES MINIMAL USE ADVANCE DIRECTIVE ADVANCE DIRECTIVE DISCUSSED WITH PATIENT:YES HCP YESSI BARBOSA [phone] JIM BARONE [phone] [facility] [id number] MORAVIAN MARITAL STATUS: . ALCOHOL SCREENING DID YOU HAVE A DRINK CONTAINING ALCOHOL IN THE PAST YEAR?YES POINTS0 INTERPRETATIONNEGATIVE OCCUPATION: RETIRED. HOSPITALIZATION/MAJOR DIAGNOSTIC PROCEDURE [facility] THERAPY 02/2019 CHILD 1970 CHILD 1973 CHILD 1980 CHILD 1982 REVIEW OF SYSTEMS REVIEWED BY: PROVIDER: ISMAEL BOUDREAUX . CONSTITUTIONAL: ANY CHANGE IN YOUR MEDICAL CONDITION? NO . CHILLS NO . FEVER NO . INFECTION: DO YOU HAVE NEW INFECTIONS? NO . DO YOU HAVE HISTORY OF MRSA? NO . MUSCULOSKELETAL: ANY NEW PATTERNS OF PAIN OR NUMBNESS? YES . SYTEMIC LUPUS NO . GASTROENTEROLOGY: ANY NEW CHANGE IN BOWEL CONTROL? YES . BARRETTS ESOPHAGUS NO . CIRRHOSIS NO . HEPATITIS NO . LIVER FAILURE NO . ACID REFLUX NO . UNEXPLAINED WEIGHT LOSS NO . GENITOURINARY: ANY NEW CHANGE IN BLADDER CONTROL? YES . IS THERE A CHANCE YOU COULD BE ? NO . HEMATOLOGY/LYMPH: DO YOU TAKE ANY BLOOD THINNERS? (FOR EXAMPLE- COUMADIN, PLAVIX, AGGRENOX, PLATEL, PRADAXA, OR XARELTO) NO . WHEN WAS YOUR LAST DOSE? DATE: TIME: . LOW PLATELET COUNT NO . SICKLE CELL DISEASE NO . VON WILLIEBRANDS NO . FACTOR V LEIDEN NO . THALLASEMIA NO . ANEMIA YES . EASY BRUISING NO . NEUROLOGY: HAVE YOU FALLEN IN THE PAST 12 MONTHS? NO . ANY NEW EXTREMITY NUMBNESS OR WEAKNESS? NO . HEAD INJURY NO . DEMENTIA NO . CEREBRAL PALSY NO . MULTIPLE SCLEROSIS NO . DIZZINESS NO . HEADACHE NO . STROKES NO . VERTIGO NO . CARDIOLOGY: DO YOU HAVE A PACEMAKER OR DEFIBRILLATOR? NO . ANGINA NO . HEART ATTACK NO . HEART SURGERY NO . CONGESTIVE HEART FAILURE/FLUID OVERLOAD NO . CHEST PAIN NO . HIGH BLOOD PRESSURE NO . IRREGULAR HEART BEAT NO . RESPIRATORY: HAVE YOU BEEN SICK IN THE PAST WEEK? NO . FEVER NO . FLU LIKE SYMPTOMS? NO . CPAP NO . BYPAP NO . ASTHMA NO . EMPHYSEMA NO . CHRONIC LUNG DISEASES NO . SHORTNESS OF BREATH ON EXERTION NO . DO YOU USE ANY TYPE OF TOBACCO (SMOKE, SMOKELESS, CHEW)? NO . COUGH NO . SNORING NO . INTEGUMENTARY: DO YOU HAVE ANY RASHES OR OPEN SORES? NO . ALLERGIC/IMMUNO: ARE YOU ALLERGIC TO IV DYE? NO . ANY NEW ALLERGIES? NO . PSYCHIATRIC: DO YOU HAVE THOUGHTS OF HURTING YOURSELF OR SOMEONE ELSE? NO . ARE YOU ABUSED, NEGLECTED, OR IN AN UNSAFE ENVIRONMENT? NO . ENDOCRINOLOGY: ARE YOU DIABETIC? NO . THYROID DISORDER HYPOTHYROID, YES . OTHER: DO YOU NEED ANY PRESCRIPTIONS? NO . IF YES, PLEASE LIST: ____ . ANY NEW PROBLEMS WITH YOUR MEDICATIONS? NO . WHEN DID YOU LAST EAT? ____ . WHEN DID YOU LAST DRINK? ____ . WHAT DID YOU LAST DRINK? ____ . NAME OF PERSON DRIVING YOU HOME? ____ . DO YOU HAVE ANY OTHER QUESTIONS OR CONCERNS NO . VITAL SIGNS WT 113.2 LBS, HT 63 IN, BMI 20.05 INDEX, BP 134/70 MM HG, HR 96 /MIN, RR 16 /MIN, TEMP 97.8 F, OXYGEN SAT % 97%, SAFE IN ENV? (Y/N) YES, NA INITIALS SC 11:31, REVIEWED BY: ALF. EXAMINATION GENERAL EXAMINATION: GENERAL CACHETIC,PLEASANT.APPEARS UNCOMFORTABLE.ACCOMPANIED IN EXAM ROOM WITH HER DAUGHTER WHO SHE LIVES WITH.. PSYCH AFFECT NORMAL. NECK:NO LYMPHADENOPATHY, SUPPLE, NO THYROMEGALLY, NO JVD OR BRUITS. LUNGS:CLEAR TO AUSCULTATION BILATERALLY, NO WHEEZES, RHONCHI, RALES. HEART:NO MURMURS, REGULAR RATE AND RHYTHM. ASSESSMENTS VAGINAL CANCER - C52 (PRIMARY) ANAL PAIN - K62.89 COCCYGEAL PAIN - M53.3 TREATMENT VAGINAL CANCER START MORPHINE SULFATE TABLET, 15 MG, 1/2 TO 1 TAB, ORALLY, Q8H PRN MDD3, 30 DAYS, 45, REFILLS 0 START COLACE CAPSULE, 100 MG, 1 CAP, ORALLY, BID, 30 DAY(S), 60 CAPSULE, REFILLS 5 NOTES: PATIENT AND DAUGHTER WERE COUNSELED ON POTENTIAL SIDE EFFECTS OF NARCOTIC PAIN MEDICATIONS, - THIS INCLUDES BUT IS NOT LIMITED TO RISK OF DEPENDANCE/DEVELOPMENT OF ADDICTION, MOOD DISTURBANCE AND DEPRESSION, OSTEOPOROSIS, HORMONAL AND LABIDAL CHANGES, RESPIRATORY DEPRESSION AND . PATIENT IS ADVISED NOT TO DRIVE OR DRINK ALCOHOL WHILE ON THESE MEDICATIONS, [facility] NARCOTIC AGREEMENT WAS REVIEWED AND SIGNED TODAY BY THE PATIENT. SEE ATTACHED DOCUMENT FOR FULL DETAILS; SPECIFIC ISSUES WERE REVIEWED: 1) KEEP PAIN MEDS IN THEIR ORIGINAL BOTTLES AND ANY WEEKLY PLANNERS ARE TO BE BROUGHT TO THE PAIN CENTER AT EVERY VISIT. 2) THE PATIENT IS NOT TO INCREASE DOSING OR TIMING OF THEIR PAIN MEDICATION WITHOUT SPECIFIC DIRECTION OF THEIR PAIN CENTERPROVIDER (NOT ER OR OTHER PROVIDERS). 3) ALL PAIN MEDS ARE TO BE KEPT SECURED, IN A LOCKED BOX. 4) NO PAIN MEDS ARE TO BE SHARED WITH ANY OTHER PERSON FOR ANY REASON. 5) NO PAIN MEDS MAY BE TAKEN FROM ANY FRIENDS OR RELATIVES FOR ANY REASON 6) NO MEDS OR SUBSTANCES WHICH ARE NOT LEGAL ARE TO BE USED- NO MARIJUANA, NO COCAINE, AMPHETAMINES, HEROIN, OR OTHERS ARE EVER TO BE USED. 7)URINE TESTING IS DONE TO ACCOUNT FOR MEDS AND SUBSTANCES BEING TAKEN AND WILL BE DONE RANDOMLY., ISTOP REGISTRY REVIEWED AND DEMONSTRATES COMPLLIANCE. OTHERS NOTES: MORPHINE ORAL MATERIAL WAS PRINTED. PROCEDURE CODES FA211 ESTABILISHED PATIENT [facility] FAC[facility] CHARGE DISPOSITION & COMMUNICATION FOLLOW UP 4-6WKS (REASON: MED MANAGEMENT) ELECTRONICALLY SIGNED BY AJNUSZ GUAMAN ON 10/16/2019 AT 09:53 AM EST DISCLAIMER : THIS IS A VISIT SUMMARY EXTRACTED FROM THE [employer] CHART. IT IS NOT A COPY OF THE [employer] PROGRESS NOTE. OMA
== END ==
LOC: M PAIN 11:00
PROVIDERS: ATTEND Nurse Practitioner Family
DX: C52 Malignant neoplasm of vagina (principal); K62.89 Other specified diseases of anus and rectum; M53.3 Sacrococcygeal disorders, not elsewhere classified; E03.9 Hypothyroidism, unspecified; E78.00 Pure hypercholesterolemia, unspecified; Z87.891 Personal history of nicotine dependence; Z88.1 Allergy status to other antibiotic agents; Z88.2 Allergy status to sulfonamides; Z79.899 Other long term (current) drug therapy

== ENCOUNTER 2019-10-09 12:43 | Outpatient (CLI) | payer MEDICARE, MEDICAID ==
[~2019-10-09] VITALS: Ht 157.5 cm; Wt 64.8 kg
[~2019-10-09 12:43] MED LIST changes: -CYMB1CAP5 PO; -GABA300S PO; -MS C15TA8 PO
[2019-10-09 12:50] VITALS: BP 135/63
[2019-10-09] MEDS ORDERED: FERRIC CARBOXYMALTOSE INJ 750 MG in NS 250 ML IV ONE (13:00)
[2019-10-09 13:45] VITALS: BP 98/55
[2019-10-09] MEDS ORDERED: GABA300S PO (14:10)
[2019-10-09] MEDS ORDERED: CYMB1CAP5 PO (14:10)
[2019-10-09] MEDS ORDERED: MS C15TA8 PO (14:12)
[2019-10-09 14:45] VITALS: BP 135/62
[2019-10-09 15:45] VITALS: BP 145/72
[2019-10-09 16:10] VITALS: BP 122/77
== END 2019-10-09 16:10 | disposition home or self-care (01) ==
LOC: M INFU 12:43
PROVIDERS: ATTEND Internal Medicine Nephrology
DX: D50.9 Iron deficiency anemia, unspecified (principal); Z88.1 Allergy status to other antibiotic agents; Z88.2 Allergy status to sulfonamides
CPT/HCPCS: 96365; 96366; J1439

== ENCOUNTER 2019-10-16 13:12 | Outpatient (CLI) | payer MEDICARE, MEDICAID ==
[~2019-10-16] VITALS: Ht 157.5 cm; Wt 51.2 kg
[~2019-10-16 13:12] MED LIST changes: +CYMB1CAP5 PO; +GABA300S PO; +MS C15TA8 PO
[2019-10-16 13:36] VITALS: BP 144/65
[2019-10-16] MEDS ORDERED: diphenhydrAMINE INJ 50MG/ML VIAL (J1200) IV PRN (14:00)
[2019-10-16] MEDS ORDERED: methylPREDNISolone INJ 125 MG/2 ML VIAL (J2930) IV PRN (14:00)
[2019-10-16] MEDS ORDERED: EPINEPHrine INJ 1 MG/ML 1ML VIAL IM PRN (14:00)
[2019-10-16] MEDS ORDERED: FERRIC CARBOXYMALTOSE INJ 750 MG in NS 250 ML IV ONE (14:00)
[2019-10-16] MEDS ORDERED: ALBUTEROL SULFATE 2.5 MG/0.5 ML INH NEB SOLN INH PRN (14:00)
[2019-10-16 14:15] VITALS: BP 117/56
[2019-10-16] MEDS ORDERED: SODIUM CHLORIDE 0.9% INJ 10 ML SYR IV ONE (15:00)
[2019-10-16 15:15] VITALS: BP 120/59
[2019-10-16 16:18] VITALS: BP 126/61
== END 2019-10-16 16:15 | disposition home or self-care (01) ==
LOC: M INFU 13:12
PROVIDERS: ATTEND Internal Medicine Nephrology
DX: D50.9 Iron deficiency anemia, unspecified (principal); Z88.1 Allergy status to other antibiotic agents; Z88.2 Allergy status to sulfonamides
CPT/HCPCS: 96365; J1439; J1642

== ENCOUNTER → 2019-11-04 | Outpatient (CLI) | payer MEDICARE, MEDICAID ==
[~2019-11-04] MED LIST changes: +ONDA8TAB10 PO; -ONDA8TAB7 PO
--- NOTE | 2019-11-18 03:53 | ECWPNPC ---
PATIENT NAME: REY DEAN : 1950 GENDER: FEMALE VISIT DATE: 11/04/2019 DISCHARGE DATE: 11/04/19 1215 VISIT LOCKED DATE TIME: PHYSICIAN: ISMAEL MCMAHAN RESOURCE: ISMAEL MCMAHAN REASON FOR APPOINTMENT 1. MED AB-COCCYX HISTORY OF PRESENT ILLNESS HISTORY OF PRESENT ILLNESS: HERE FOR FOLLOW-UP AND MEDICINE MANAGEMENT OF CHRONIC ANAL AND COCCYX PAIN SECONDARY TO METASTATIC VAGINAL CA, DIAGNOSED OCTOBER 2018. ACCOMPANIED IN THE EXAM ROOM WITH HER DAUGHTER. HAS HAD SOME IMPROVEMENT IN SLEEP WITH STARTING MORPHINE 15 MG INSTANT RELEASE. USING UP TO 3 WHOLE TABLETS DAILY. REPORTING CONSTIPATION DESPITE STARTING COLACE 100 MG TWICE A DAY AT LAST VISIT. REPORTING THAT CANCER HAS SPREAD AND SHE WILL BE STARTING CHEMOTHERAPY IN THE NEAR FUTURE. THEY ARE TRYING TO REDUCE THE TUMOR AND POSSIBLY OF COLOSTOMY. HAVING ACTIVITY INTOLERANCE, I.E. STANDING DUE TO PAIN IN THE ANAL AREA. DISCUSSED TREATMENT OPTIONS TO INCLUDE STARTING A LONG-ACTING OPIOID, MS CONTIN. RATING PAIN LEVEL A 1-10 OVER 10. PAIN THE PATIENT DESCRIBES THE PAIN... FALL RISK SCREENING: SCREENING :NO FALLS REPORTED IN THE LAST YEAR CURRENT MEDICATIONS TAKING LEVOTHYROXINE SODIUM 50 MCG TABLET 1 TABLET ON AN EMPTY STOMACH IN THE MORNING ORALLY ONCE A DAY TAKING LIPITOR 10 MG TABLET 1 TABLET ORALLY ONCE A DAY TAKING GABAPENTIN 300 MG CAPSULE 1 CAPSULE ORALLY THREE TIMES DAILY TAKING TYLENOL EXTRA STRENGTH 500 MG TABLET 2 TABLET NEEDED ORALLY EVERY 6 HRS TAKING TUMS 500 MG TABLET CHEWABLE 1 TABLET ORALLY ONCE A DAY NEEDED FOR HEARTBURN TAKING CYMBALTA 30 MG CAPSULE DELAYED RELEASE PARTICLES 1 CAPSULE ORALLY ONCE A DAY TAKING COLACE 100 MG CAPSULE 1 CAP ORALLY BID TAKING MORPHINE SULFATE 15 MG TABLET 1/2 TO 1 TAB ORALLY Q8H PRN MDD3 NOT-TAKING PREDNISONE 5 MG TABLET 1 TABLET ORALLY ONCE A DAY NOT-TAKING TYLENOL 325 MG TABLET 1 TABLET NEEDED ORALLY EVERY 4 HRS NOT-TAKING COLACE 100 MG CAPSULE 1 CAPSULE NEEDED ORALLY TWICE A DAY MEDICATION LIST REVIEWED AND RECONCILED WITH THE PATIENT PAST MEDICAL HISTORY HYPOTHYROIDISM HYPERCHOLESTEROLEMIA CANCER VAGINAL STAGE II KIDNEY FUNCTION ALLERGIES CLARITHROMYCIN: RASH - ALLERGY SULFAMETHOXAZOLE-TMP DS: HEAD ACHE, STIFF NECK - SIDE EFFECTS SURGICAL HISTORY ORAL SURGERY 02/1986 INFUSAPORT 01/15/19 LEX BRACHY THERAPY 02/2019 FAMILY HISTORY MOTHER: , DIAGNOSED WITH OTHER MALIGNANT NEOPLASM OF UNSPECIFIED SITE PATERNAL AUNT: DIABETES 1 BROTHER(S) , 1 SISTER(S) . FATHER IS UNKNOWNBROTHER AT @54 YRS OLD MELENOMASISTER HAD UTERINE CANCER , HTN. SOCIAL HISTORY GENERAL: TOBACCO USE ARE YOU A:FORMER SMOKER OTHERS AT HOME: CHILDREN. HOUSING: OWNS HOME. EDUCATION LEVEL OF EDUCATION: GED DIET: REGULAR. LANGUAGE LANGUAGES SPOKEN:CHILEAN RECREATIONAL DRUG USE DRUG USE?NO EXERCISE: NONE. LEARNING BARRIERS / SPECIAL NEEDS BARRIERS TO LEARNING?NO PAIN CLINIC PFS, CLERGY, PUBLIC HEALTH REFERRALS PFS REFERRAL NEEDED?NO CLERGY REFERRAL NEEDED?NO PUBLIC HEALTH REFERRAL NEEDED?NO WAS THE PROVIDER NOTIFIED OF ANY PERTINENT INFO?NO HAS THE PATIENT BEEN EDUCATED REGARDING HIS/HER PLAN OF CARE?YES HAS THE PATIENT BEEN EDUCATED REGARDING PAIN, THE RISK FOR PAIN, THE IMPORTANCE OF EFFECTIVE PAIN MANAGEMENT, AND THE PAIN ASSESSMENT PROCESS?YES LATEX QUESTIONNAIRE LATEX ALLERGY : HAVE YOU EVER DEVELOPED ANY TYPE OF REACTION AFTER HANDLING LATEX PRODUCTS SUCH RUBBER GLOVES, CONDOMS, DIAPHRAGMS, BALLOONS, SOCKS, OR UNDERWEAR?NO LATEX ALLERGY : HAVE YOU EVER DEVELOPED ANY TYPE OF REACTION DURING OR AFTER DENTAL APPOINTMENT, VAGINAL/RECTAL EXAMINATION, SURGICAL PROCEDURE, OR ANY OTHER EXPOSURE?NO DATE ASKED : 10/07/2019 LATEX RISK : HAVE YOU EVER HAD ANY DIFFICULTY BREATHING OR HIVES AFTER EATING OR HANDLING ANY FRUITS, OR VEGETABLES; SUCH KIWI, BANANAS, STONE FRUITS, OR CHESTNUTSNO LATEX RISK : DO YOU HAVE A PREVIOUS PERSONAL HISTORY OF MORE THAN NINE SURGERIES, SPINA BIFIDA, OR REPEATED CATHERIZATIONS? NO LATEX RISK : ARE YOU FREQUENTLY EXPOSED TO LATEX PRODUCTS IN YOUR OCCUPATION?NO CAFFEINE CAFFEINE USE?YES MINIMAL USE ADVANCE DIRECTIVE ADVANCE DIRECTIVE DISCUSSED WITH PATIENT:YES HCP YESSI BARBOSA [phone] JIM BARONE [phone] [employer] [id number] RELIGION MARITAL STATUS: . ALCOHOL SCREENING DID YOU HAVE A DRINK CONTAINING ALCOHOL IN THE PAST YEAR?YES POINTS0 INTERPRETATIONNEGATIVE OCCUPATION: RETIRED. HOSPITALIZATION/MAJOR DIAGNOSTIC PROCEDURE BRACHY THERAPY 02/2019 CHILD 1970 CHILD 1973 CHILD 1980 CHILD 1981 REVIEW OF SYSTEMS REVIEWED BY: PROVIDER: ISMAEL BOUDREAUX . CONSTITUTIONAL: ANY CHANGE IN YOUR MEDICAL CONDITION? NO . CHILLS NO . FEVER NO . INFECTION: DO YOU HAVE NEW INFECTIONS? NO . DO YOU HAVE HISTORY OF MRSA? NO . MUSCULOSKELETAL: ANY NEW PATTERNS OF PAIN OR NUMBNESS? YES . GASTROENTEROLOGY: ANY NEW CHANGE IN BOWEL CONTROL? YES . GENITOURINARY: ANY NEW CHANGE IN BLADDER CONTROL? YES . IS THERE A CHANCE YOU COULD BE ? NO . HEMATOLOGY/LYMPH: DO YOU TAKE ANY BLOOD THINNERS? (FOR EXAMPLE- COUMADIN, PLAVIX, AGGRENOX, PLATEL, PRADAXA, OR XARELTO) NO . WHEN WAS YOUR LAST DOSE? DATE: TIME: . NEUROLOGY: HAVE YOU FALLEN IN THE PAST 12 MONTHS? NO . ANY NEW EXTREMITY NUMBNESS OR WEAKNESS? NO . CARDIOLOGY: DO YOU HAVE A PACEMAKER OR DEFIBRILLATOR? NO . RESPIRATORY: HAVE YOU BEEN SICK IN THE PAST WEEK? NO . FEVER NO . FLU LIKE SYMPTOMS? NO . COUGH NO . INTEGUMENTARY: DO YOU HAVE ANY RASHES OR OPEN SORES? NO . ALLERGIC/IMMUNO: ARE YOU ALLERGIC TO IV DYE? NO . ANY NEW ALLERGIES? NO . PSYCHIATRIC: DO YOU HAVE THOUGHTS OF HURTING YOURSELF OR SOMEONE ELSE? NO . ARE YOU ABUSED, NEGLECTED, OR IN AN UNSAFE ENVIRONMENT? NO . ENDOCRINOLOGY: ARE YOU DIABETIC? NO . OTHER: DO YOU NEED ANY PRESCRIPTIONS? YES . IF YES, PLEASE LIST: ____ . ANY NEW PROBLEMS WITH YOUR MEDICATIONS? NO . WHEN DID YOU LAST EAT? ____ . WHEN DID YOU LAST DRINK? ____ . WHAT DID YOU LAST DRINK? ____ . NAME OF PERSON DRIVING YOU HOME? ____ . DO YOU HAVE ANY OTHER QUESTIONS OR CONCERNS NO . VITAL SIGNS WT 110.2 LBS, HT 63 IN, BMI 19.52 INDEX, BP 112/67 MM HG, HR 81 /MIN, RR 16 /MIN, TEMP 97.6 F, OXYGEN SAT % 94%, NA INITIALS AW 1054, REVIEWED BY: LS. EXAMINATION GENERAL EXAMINATION: GENERAL AWAKE,ALERT ,PLEASANT . ACCOMPANIED IN THE EXAM ROOM WITH HER DAUGHTER. PSYCH AFFECT NORMAL . LUNGS: LUNG VITAL ARE CLEAR TO AUSCULTATION BILATERALLY. GOOD MOVEMENT OF AIR . HEART: S1, S2 IN A REGULAR RATE AND RHYTHM. NO SIGNIFICANT MURMURS, RUBS OR GALLOPS NOTED . ASSESSMENTS VAGINAL CANCER - C52 (PRIMARY) ANAL PAIN - K62.89 COCCYGEAL PAIN - M53.3 TREATMENT VAGINAL CANCER INCREASE COLACE CAPSULE, 100 MG, 2 CAP, ORALLY, BID, 30 DAY(S), 120, REFILLS 5 REFILL MORPHINE SULFATE TABLET, 15 MG, 1/2 TO 1 TAB, ORALLY, Q8H PRN MDD3, 30 DAYS, 90, REFILLS 0 START MORPHINE SULFATE ER TABLET EXTENDED RELEASE, 15 MG, 1 TABLET, ORALLY, EVERY 12 HRS MDD2, 30 DAYS, 60, REFILLS 0 NOTES: I HAVE INSTRUCTED PATIENT TO TAKE COLACE 2 CAPSULES AT 8 AM AND 8 PM DAILY. START MS CONTIN 15 MG AT 8 AM AND 8 PM DAILY. USE MORPHINE SULFATE INSTANT RELEASE 15 MG HALF TABLET TO ONE FULL TABLET EVERY 4-6 HOURS NEEDED THROUGHOUT THE DAY FOR BREAKTHROUGH PAIN EPISODES WITH MAXIMUM DAILY DOSE OF 3 TABLETS. INSTRUCTED PATIENT AND DAUGHTER TO CALL IF SHE'S HAVING ANY PROBLEMS. PROCEDURE CODES FA211 ESTABILISHED PATIENT [facility] CHARGE DISPOSITION & COMMUNICATION FOLLOW UP 4 WEEKS (REASON: MED MGMNT) ELECTRONICALLY SIGNED BY JANUSZ GUAMAN ON 11/17/2019 AT 03:41 PM EST DISCLAIMER : THIS IS A VISIT SUMMARY EXTRACTED FROM THE [employer] CHART. IT IS NOT A COPY OF THE [employer] PROGRESS NOTE. OMA
== END ==
LOC: M PAIN 10:30
PROVIDERS: ATTEND Nurse Practitioner Family
DX: C52 Malignant neoplasm of vagina (principal); K62.89 Other specified diseases of anus and rectum; M53.3 Sacrococcygeal disorders, not elsewhere classified

== ENCOUNTER → 2019-11-14 | Outpatient (CLI) | payer MEDICARE, MEDICAID ==
[2019-11-14 17:20] LABS: BASO # 0.1 10^3/uL (0.0-0.2); BASO % 0.8 % (0.0-1.0); BLOOD UREA NITROGEN 10 MG/DL (7-18); CALCIUM LEVEL 8.8 MG/DL (8.8-10.2); CARBON DIOXIDE LEVEL 28 MEQ/L (21-32); CHLORIDE LEVEL 98 MEQ/L (98-107); CREATININE FOR GFR 0.92 MG/DL (0.55-1.30); EOS # 0.4 10^3/uL (0.0-0.5); EOS % 3.5 % (0.0-3.0); GLOMERULAR FILTRATION RATE > 60.0 (>45); GLUCOSE, FASTING 98 MG/DL (70-100); HEMATOCRIT 35.5 % (36.0-47.0); HEMOGLOBIN 10.7 g/dl (12.0-15.5); LYMPH # 1.1 10^3/uL (1.5-5.0); LYMPH % 10.5 % (24.0-44.0); MEAN CORPUSCULAR HEMOGLOBIN 29.2 pg (27.0-33.0); MEAN CORPUSCULAR HGB CONC 30.1 g/dl (32.0-36.5); MONO % 8.9 % (0.0-5.0); NEUTROPHILS # 8.1 10^3/uL (1.5-8.5); NEUTROPHILS % 75.9 % (36.0-66.0); PLATELET COUNT, AUTOMATED 369 10^3/uL (150-450); RED BLOOD COUNT 3.66 10^6/uL (4.00-5.40); SODIUM LEVEL 135 MEQ/L (136-145); WHITE BLOOD COUNT 10.7 10^3/uL (4.0-10.0)
[2019-11-14 17:21] LABS: ALBUMIN 2.9 GM/DL (3.2-5.2); ALT/SGPT 9 U/L (12-78); BILIRUBIN,TOTAL 0.6 MG/DL (0.2-1.0); TOTAL PROTEIN 6.3 GM/DL (6.4-8.2)
== END ==
LOC: M LRY 10:37
PROVIDERS: ATTEND Nurse Practitioner Family
DX: R94.4 Abnormal results of kidney function studies (principal); D50.0 Iron deficiency anemia secondary to blood loss (chronic)

== ENCOUNTER → 2019-11-20 | Outpatient (CLI) | payer MEDICARE, MEDICAID ==
[2019-11-20 09:42] LABS: BASO # 0.1 10^3/uL (0.0-0.2); BASO % 1.3 % (0.0-1.0); EOS # 0.5 10^3/uL (0.0-0.5); EOS % 5.3 % (0.0-3.0); HEMATOCRIT 36.5 % (36.0-47.0); HEMOGLOBIN 11.1 g/dl (12.0-15.5); LYMPH # 1.3 10^3/uL (1.5-5.0); MEAN CORPUSCULAR HEMOGLOBIN 29.5 pg (27.0-33.0); MEAN CORPUSCULAR HGB CONC 30.4 g/dl (32.0-36.5); MEAN CORPUSCULAR VOLUME 97.1 fl (80.0-96.0); MONO # 1.1 10^3/uL (0.0-0.8); MONO % 12.3 % (0.0-5.0); NEUTROPHILS # 5.9 10^3/uL (1.5-8.5); NEUTROPHILS % 66.7 % (36.0-66.0); PLATELET COUNT, AUTOMATED 358 10^3/uL (150-450); RED BLOOD COUNT 3.76 10^6/uL (4.00-5.40); WHITE BLOOD COUNT 8.9 10^3/uL (4.0-10.0)
[2019-11-20 10:10] LABS: ALBUMIN 2.8 GM/DL (3.2-5.2); BILIRUBIN,TOTAL 0.4 MG/DL (0.2-1.0); CALCIUM LEVEL 8.9 MG/DL (8.8-10.2); CREATININE FOR GFR 1.15 MG/DL (0.55-1.30); MAGNESIUM LEVEL 1.9 MG/DL (1.8-2.4); POTASSIUM SERUM 4.1 MEQ/L (3.5-5.1); TOTAL PROTEIN 6.3 GM/DL (6.4-8.2)
[2019-11-21 11:26] LABS: CA 125 18.4 U/ML (<30.2)
== END ==
LOC: M LAB 08:20
PROVIDERS: ATTEND Nurse Practitioner
DX: C52 Malignant neoplasm of vagina (principal); Z79.899 Other long term (current) drug therapy

== ENCOUNTER → 2019-12-01 | Outpatient (CLI) | payer MEDICARE, MEDICAID ==
[2019-12-01 09:13] LABS: BASO # 0.1 10^3/uL (0.0-0.2); BASO % 1.3 % (0.0-1.0); EOS # 0.1 10^3/uL (0.0-0.5); EOS % 2.6 % (0.0-3.0); HEMATOCRIT 31.2 % (36.0-47.0); LYMPH # 0.6 10^3/uL (1.5-5.0); LYMPH % 12.6 % (24.0-44.0); MEAN CORPUSCULAR HEMOGLOBIN 29.8 pg (27.0-33.0); MEAN CORPUSCULAR HGB CONC 32.1 g/dl (32.0-36.5); MEAN CORPUSCULAR VOLUME 92.9 fl (80.0-96.0); MONO % 21.7 % (0.0-5.0); NEUTROPHILS # 2.9 10^3/uL (1.5-8.5); NEUTROPHILS % 61.2 % (36.0-66.0); PLATELET COUNT, AUTOMATED 346 10^3/uL (150-450); RED BLOOD COUNT 3.36 10^6/uL (4.00-5.40); WHITE BLOOD COUNT 4.7 10^3/uL (4.0-10.0)
== END ==
LOC: M LAB 08:22
PROVIDERS: ATTEND Nurse Practitioner
DX: C52 Malignant neoplasm of vagina (principal)

== ENCOUNTER → 2019-12-02 | Outpatient (CLI) | payer MEDICARE, MEDICAID ==
--- NOTE | 2019-12-17 04:25 | ECWPNPC ---
PATIENT NAME: REY DEAN : 1950 GENDER: FEMALE VISIT DATE: 12/02/2019 DISCHARGE DATE: 12/02/19 1222 VISIT LOCKED DATE TIME: PHYSICIAN: ISMAEL MCMAHAN RESOURCE: ISMAEL MCMAHAN REASON FOR APPOINTMENT 1. 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 REPORTS IMPROVEMENT IN HER PAIN AFTER INCREASING SHORT ACTING OR FIEND 15 MG TO 3 TABLETS A DAY AND CONTINUING MS CONTIN 15 MG TWICE A DAY AT LAST VISIT. CONTINUES WITH SIGNIFICANT DISCOMFORT WITH BOWEL MOVEMENTS. HE IS TAKING COLACE PRESCRIBED. RATING PAIN LEVEL A 7-10 OVER 10 VAS. PAIN THE PATIENT DESCRIBES THE PAIN... FALL RISK SCREENING: SCREENING :NO FALLS REPORTED IN THE LAST YEAR CURRENT MEDICATIONS TAKING LEVOTHYROXINE SODIUM 50 MCG TABLET 1 TABLET ON AN EMPTY STOMACH IN THE MORNING ORALLY ONCE A DAY TAKING LIPITOR 10 MG TABLET 1 TABLET ORALLY ONCE A DAY TAKING GABAPENTIN 300 MG CAPSULE 1 CAPSULE ORALLY THREE TIMES DAILY TAKING TYLENOL EXTRA STRENGTH 500 MG TABLET 2 TABLET NEEDED ORALLY EVERY 6 HRS TAKING TUMS 500 MG TABLET CHEWABLE 1 TABLET ORALLY ONCE A DAY NEEDED FOR HEARTBURN TAKING CYMBALTA 30 MG CAPSULE DELAYED RELEASE PARTICLES 1 CAPSULE ORALLY ONCE A DAY TAKING COLACE 100 MG CAPSULE 2 CAP ORALLY BID TAKING MORPHINE SULFATE 15 MG TABLET 1/2 TO 1 TAB ORALLY Q8H PRN MDD3 TAKING MORPHINE SULFATE ER 15 MG TABLET EXTENDED RELEASE 1 TABLET ORALLY EVERY 12 HRS MDD2 NOT-TAKING PREDNISONE 5 MG TABLET 1 TABLET ORALLY ONCE A DAY NOT-TAKING TYLENOL 325 MG TABLET 1 TABLET NEEDED ORALLY EVERY 4 HRS NOT-TAKING COLACE 100 MG CAPSULE 1 CAPSULE NEEDED ORALLY TWICE A DAY MEDICATION LIST REVIEWED AND RECONCILED WITH THE PATIENT PAST MEDICAL HISTORY HYPOTHYROIDISM HYPERCHOLESTEROLEMIA CANCER VAGINAL STAGE II KIDNEY FUNCTION ALLERGIES CLARITHROMYCIN: RASH - ALLERGY SULFAMETHOXAZOLE-TMP DS: HEAD ACHE, STIFF NECK - SIDE EFFECTS SURGICAL HISTORY ORAL SURGERY 02/1986 INFUSAPORT 01/15/19 LEX BRACHY THERAPY 02/2019 FAMILY HISTORY MOTHER: , DIAGNOSED WITH OTHER MALIGNANT NEOPLASM OF UNSPECIFIED SITE PATERNAL AUNT: DIABETES 1 BROTHER(S) , 1 SISTER(S) . FATHER IS UNKNOWNBROTHER AT @54 YRS OLD MELENOMASISTER HAD UTERINE CANCER , HTN. SOCIAL HISTORY GENERAL: TOBACCO USE ARE YOU A:FORMER SMOKER OTHERS AT HOME: CHILDREN. HOUSING: OWNS HOME. EDUCATION LEVEL OF EDUCATION: GED DIET: REGULAR. LANGUAGE LANGUAGES SPOKEN:TURKISH RECREATIONAL DRUG USE DRUG USE?NO EXERCISE: NONE. LEARNING BARRIERS / SPECIAL NEEDS BARRIERS TO LEARNING?NO PAIN CLINIC PFS, CLERGY, PUBLIC HEALTH REFERRALS PFS REFERRAL NEEDED?NO CLERGY REFERRAL NEEDED?NO PUBLIC HEALTH REFERRAL NEEDED?NO WAS THE PROVIDER NOTIFIED OF ANY PERTINENT INFO?YES HAS THE PATIENT BEEN EDUCATED REGARDING HIS/HER PLAN OF CARE?YES HAS THE PATIENT BEEN EDUCATED REGARDING PAIN, THE RISK FOR PAIN, THE IMPORTANCE OF EFFECTIVE PAIN MANAGEMENT, AND THE PAIN ASSESSMENT PROCESS?YES LATEX QUESTIONNAIRE LATEX ALLERGY : HAVE YOU EVER DEVELOPED ANY TYPE OF REACTION AFTER HANDLING LATEX PRODUCTS SUCH RUBBER GLOVES, CONDOMS, DIAPHRAGMS, BALLOONS, SOCKS, OR UNDERWEAR?NO LATEX ALLERGY : HAVE YOU EVER DEVELOPED ANY TYPE OF REACTION DURING OR AFTER DENTAL APPOINTMENT, VAGINAL/RECTAL EXAMINATION, SURGICAL PROCEDURE, OR ANY OTHER EXPOSURE?NO LATEX RISK : HAVE YOU EVER HAD ANY DIFFICULTY BREATHING OR HIVES AFTER EATING OR HANDLING ANY FRUITS, OR VEGETABLES; SUCH KIWI, BANANAS, STONE FRUITS, OR CHESTNUTSNO LATEX RISK : DO YOU HAVE A PREVIOUS PERSONAL HISTORY OF MORE THAN NINE SURGERIES, SPINA BIFIDA, OR REPEATED CATHERIZATIONS? NO LATEX RISK : ARE YOU FREQUENTLY EXPOSED TO LATEX PRODUCTS IN YOUR OCCUPATION?NO DATE ASKED : 12/02/2019 CAFFEINE CAFFEINE USE?YES MINIMAL USE ADVANCE DIRECTIVE ADVANCE DIRECTIVE DISCUSSED WITH PATIENT:YES HCP YESSI BARBOSA [phone] JIM BARONE [phone] SABIANIST [id number] ALEVISM MARITAL STATUS: . ALCOHOL SCREENING DID YOU HAVE A DRINK CONTAINING ALCOHOL IN THE PAST YEAR?YES POINTS0 INTERPRETATIONNEGATIVE OCCUPATION: RETIRED. REVIEWED WITH PATIENT 12/02/2019 DS. HOSPITALIZATION/MAJOR DIAGNOSTIC PROCEDURE BRACHY THERAPY 02/2019 CHILD 1970 CHILD 1973 CHILD 1980 CHILD 1981 REVIEW OF SYSTEMS REVIEWED BY: PROVIDER: ISMAEL BOUDREAUX . CONSTITUTIONAL: ANY CHANGE IN YOUR MEDICAL CONDITION? NO . CHILLS NO . FEVER NO . INFECTION: DO YOU HAVE NEW INFECTIONS? NO . DO YOU HAVE HISTORY OF MRSA? NO . MUSCULOSKELETAL: ANY NEW PATTERNS OF PAIN OR NUMBNESS? YES, PT STATES THAT SHE HAS BEEN HAVING PAIN RELIEF WITH MORPHINE. . GASTROENTEROLOGY: ANY NEW CHANGE IN BOWEL CONTROL? YES, PT STATES THAT SHE IS GOING THROUGH CHEMO TREATMENTS, STATES THAT MEDS HAVING BEEN CAUSING INCONTINENCE. . GENITOURINARY: ANY NEW CHANGE IN BLADDER CONTROL? YES, PT STATES THAT SHE HAS HADBLADDER INCONTINENCE ISSUES FOR A LONG TIME, DOES NOT FEEL THAT IT IS SPINE RELATED. . IS THERE A CHANCE YOU COULD BE ? NO . HEMATOLOGY/LYMPH: DO YOU TAKE ANY BLOOD THINNERS? (FOR EXAMPLE- COUMADIN, PLAVIX, AGGRENOX, PLATEL, PRADAXA, OR XARELTO) NO . WHEN WAS YOUR LAST DOSE? DATE: TIME: . NEUROLOGY: HAVE YOU FALLEN IN THE PAST 12 MONTHS? YES, PT STATES THAT SHE FELL WHILE AT HOME, NO SIGNIFICANT INJURY FROM FALL, NO BRUISING. DS . ANY NEW EXTREMITY NUMBNESS OR WEAKNESS? YES . CARDIOLOGY: DO YOU HAVE A PACEMAKER OR DEFIBRILLATOR? NO . RESPIRATORY: HAVE YOU BEEN SICK IN THE PAST WEEK? NO . FEVER NO . FLU LIKE SYMPTOMS? NO . COUGH NO . INTEGUMENTARY: DO YOU HAVE ANY RASHES OR OPEN SORES? NO . ALLERGIC/IMMUNO: ARE YOU ALLERGIC TO IV DYE? NO . ANY NEW ALLERGIES? NO . PSYCHIATRIC: DO YOU HAVE THOUGHTS OF HURTING YOURSELF OR SOMEONE ELSE? NO . ARE YOU ABUSED, NEGLECTED, OR IN AN UNSAFE ENVIRONMENT? NO . ENDOCRINOLOGY: ARE YOU DIABETIC? NO . OTHER: DO YOU NEED ANY PRESCRIPTIONS? NO . IF YES, PLEASE LIST: ____ . ANY NEW PROBLEMS WITH YOUR MEDICATIONS? NO . WHEN DID YOU LAST EAT? ____ . WHEN DID YOU LAST DRINK? ____ . WHAT DID YOU LAST DRINK? ____ . NAME OF PERSON DRIVING YOU HOME? ____ . DO YOU HAVE ANY OTHER QUESTIONS OR CONCERNS YES, PT HAVING QUESTIONS REGARDING MORPHINE IR AND MORPHINE ER. . VITAL SIGNS WT 105.4 LBS, HT 63 IN, BMI 18.67 INDEX, BP 84/53 MM HG, REPEAT BP 88/58 MM HG, HR 98 /MIN, RR 16 /MIN, TEMP 99.3 F, OXYGEN SAT % 97, SAFE IN ENV? (Y/N) Y, REVIEWED BY: DS. EXAMINATION GENERAL EXAMINATION: GENERAL AWAKE,ALERT ,PLEASANT . ACCOMPANIED IN THE EXAM ROOM WITH HER DAUGHTER. PSYCH AFFECT NORMAL . LUNGS: LUNG VITAL ARE CLEAR TO AUSCULTATION BILATERALLY. GOOD MOVEMENT OF AIR . HEART: S1, S2 IN A REGULAR RATE AND RHYTHM. NO SIGNIFICANT MURMURS, RUBS OR GALLOPS NOTED . ASSESSMENTS VAGINAL CANCER - C52 (PRIMARY) ANAL PAIN - K62.89 COCCYGEAL PAIN - M53.3 TREATMENT VAGINAL CANCER REFILL MORPHINE SULFATE TABLET, 15 MG, 1/2 TO 1 TAB, ORALLY, Q8H PRN MDD3, 30 DAYS, 90, REFILLS 0 REFILL MORPHINE SULFATE ER TABLET EXTENDED RELEASE, 15 MG, 1 TABLET, ORALLY, EVERY 12 HRS MDD2, 30 DAYS, 60, REFILLS 0 NOTES: ISTOP REGISTRY REVIEWED AND DEMONSTRATES COMPLLIANCE. BRINGS IN MEDICATIONS WHICH IS APPROPRIATE FOR WHAT WAS DISPENSED. . NO ILLICIT SUBSTANCES AND PRESCRIBED MEDICATIONS WERE PRESENT. URINE TOX TODAYRISKS OF NARCOTIC/OPIOD MEDICATIONS INCLUDES BUT IS NOT LIMITED TO RISK OF DEPENDANCE/DEVELOPMENT OF ADDICTION, MOOD DISTURBANCE AND DEPRESSION, OSTEOPOROSIS, HORMONAL AND LABIDAL CHANGES, RESPIRATORY DEPRESSION AND . PATIENT IS ADVISED NOT TO DRIVE OR DRINK ALCOHOL WHILE ON THESE MEDICATIONS, . PREVENTIVE MEDICINE PAIN CLINIC TEACHING: THE PATIENT HAS BEEN EDUCATED REGARDING PAIN, THE RISK FOR PAIN, THE IMPORTANCE OF EFFECTIVE PAIN MANAGEMENT, AND THE PAIN ASSESSMENT PROCESS. : REVIEWED AND DISCUSSED TREATMENT PLAN WITH PATIENT, PT ACKNOWLEDGED UNDERSTANIND. DS PROCEDURE CODES FA211 ESTABILISHED PATIENT FORMERLY [facility] CHARGE DISPOSITION & COMMUNICATION FOLLOW UP 2 MONTHS (REASON: MED MGMNT) ELECTRONICALLY SIGNED BY JANUSZ GUAMAN ON 12/16/2019 AT 03:30 PM EST DISCLAIMER : THIS IS A VISIT SUMMARY EXTRACTED FROM THE [employer] CHART. IT IS NOT A COPY OF THE [employer] PROGRESS NOTE. OMA
== END ==
LOC: M PAIN 10:45
PROVIDERS: ATTEND Nurse Practitioner Family
DX: C52 Malignant neoplasm of vagina (principal); K62.89 Other specified diseases of anus and rectum; M53.3 Sacrococcygeal disorders, not elsewhere classified

== ENCOUNTER → 2019-12-11 | Outpatient (CLI) | payer MEDICARE, MEDICAID ==
[2019-12-11 09:14] LABS: BASO # 0.1 10^3/uL (0.0-0.2); EOS # 0.1 10^3/uL (0.0-0.5); EOS % 1.1 % (0.0-3.0); HEMATOCRIT 30.3 % (36.0-47.0); HEMOGLOBIN 9.7 g/dl (12.0-15.5); LYMPH # 1.1 10^3/uL (1.5-5.0); LYMPH % 10.7 % (24.0-44.0); MEAN CORPUSCULAR HEMOGLOBIN 29.6 pg (27.0-33.0); MEAN CORPUSCULAR VOLUME 92.4 fl (80.0-96.0); MONO # 1.1 10^3/uL (0.0-0.8); MONO % 10.4 % (0.0-5.0); NEUTROPHILS % 76.1 % (36.0-66.0); PLATELET COUNT, AUTOMATED 484 10^3/uL (150-450); RED BLOOD COUNT 3.28 10^6/uL (4.00-5.40); WHITE BLOOD COUNT 10.5 10^3/uL (4.0-10.0)
[2019-12-11 09:36] LABS: ALBUMIN 2.4 GM/DL (3.2-5.2); ALT/SGPT 11 U/L (12-78); BILIRUBIN,TOTAL 0.3 MG/DL (0.2-1.0); BLOOD UREA NITROGEN 8 MG/DL (7-18); CALCIUM LEVEL 8.9 MG/DL (8.8-10.2); CARBON DIOXIDE LEVEL 29 MEQ/L (21-32); CHLORIDE LEVEL 99 MEQ/L (98-107); CREATININE FOR GFR 0.84 MG/DL (0.55-1.30); GLOMERULAR FILTRATION RATE > 60.0 (>45); GLUCOSE, FASTING 105 MG/DL (70-100); MAGNESIUM LEVEL 1.7 MG/DL (1.8-2.4); POTASSIUM SERUM 4.3 MEQ/L (3.5-5.1); SODIUM LEVEL 135 MEQ/L (136-145); TOTAL PROTEIN 5.9 GM/DL (6.4-8.2)
[2019-12-12 09:47] LABS: CA 125 25.6 U/ML (<30.2)
== END ==
LOC: M LAB 08:38
PROVIDERS: ATTEND Nurse Practitioner
DX: C52 Malignant neoplasm of vagina (principal); Z79.899 Other long term (current) drug therapy

== ENCOUNTER → 2019-12-22 | Outpatient (CLI) | payer MEDICARE, MEDICAID ==
[2019-12-22 09:28] LABS: BASO # 0.1 10^3/uL (0.0-0.2); BASO % 0.7 % (0.0-1.0); EOS # 0.2 10^3/uL (0.0-0.5); EOS % 2.2 % (0.0-3.0); HEMATOCRIT 31.5 % (36.0-47.0); HEMOGLOBIN 10.1 g/dl (12.0-15.5); LYMPH # 1.1 10^3/uL (1.5-5.0); LYMPH % 10.8 % (24.0-44.0); MEAN CORPUSCULAR HEMOGLOBIN 29.2 pg (27.0-33.0); MEAN CORPUSCULAR HGB CONC 32.1 g/dl (32.0-36.5); MONO # 1.1 10^3/uL (0.0-0.8); MONO % 10.7 % (0.0-5.0); NEUTROPHILS # 7.5 10^3/uL (1.5-8.5); NEUTROPHILS % 75.1 % (36.0-66.0); PLATELET COUNT, AUTOMATED 432 10^3/uL (150-450); RED BLOOD COUNT 3.46 10^6/uL (4.00-5.40)
== END ==
LOC: M LAB 08:12
PROVIDERS: ATTEND Nurse Practitioner
DX: Z79.899 Other long term (current) drug therapy (principal)